=== PATIENT | male | born 1970 | race Caucasian/White ===

== ENCOUNTER → 2016-09-01 | Outpatient (REF) | payer OTHER | LOC: M LAB REF 16:35 | PROVIDERS: ATTEND Internal Medicine | DX: M25.50 Pain in unspecified joint (principal) ==

== ENCOUNTER → 2018-09-20 | Outpatient (CLI) | payer OTHER ==
--- NOTE | 2018-09-20 18:43 | REP ---
Bilateral hand radiographs: Eight views. History: Pain and swelling. The patient reports a bump on the left hand. Findings: Four views of the right hand demonstrate overall normal mineralization. There are scattered osteoarthritic changes mild in degree involving the first carpometacarpal articulation, the PIP joint of the long finger and ring finger. No erosive changes seen. Study is otherwise unremarkable. Four views of the left hand show overall normal mineralization. There is also mild osteoarthritic spurring at the first carpometacarpal articulation on the left. Early spurring is seen at the PIP joints of the index, long, and ring finger on the left side. No erosive changes seen. Soft tissues are unremarkable. Impression: Mild osteoarthritic changes. No erosive changes seen. Electronically Signed by Rashad Bedolla MD 09/20/2018 08:29 P
== END ==
LOC: M WUC 15:48
PROVIDERS: ATTEND Internal Medicine
DX: M19.042 Primary osteoarthritis, left hand (principal); M19.041 Primary osteoarthritis, right hand

== ENCOUNTER → 2018-09-20 | Outpatient (REF) | payer OTHER ==
[2018-09-22 00:10] LABS: Lyme Disease IgG/IgM Antibodie <0.91 ISR (0.00-0.90); Lyme Disease IgM Ab Quantitati <0.80 index (0.00-0.79)
== END ==
LOC: M LAB REF 12:02
PROVIDERS: ATTEND Internal Medicine
DX: M79.643 Pain in unspecified hand (principal)

== ENCOUNTER → 2018-10-25 | Outpatient (REF) | payer OTHER | LOC: M LAB REF 11:19 | PROVIDERS: ATTEND Internal Medicine | DX: M79.641 Pain in right hand (principal) ==

== ENCOUNTER → 2018-12-31 | Outpatient (REF) | payer OTHER ==
[2018-12-31 18:25] LABS: BASO % 0.4 % (0.0-1.0); EOS # 0.2 10^3/uL (0.0-0.50); EOS % 2.4 % (0.0-3.0); HEMATOCRIT 42.8 % (42.0-52.0); HEMOGLOBIN 14.5 g/dl (13.5-17.5); LYMPH # 1.6 10^3/uL (1.5-4.5); LYMPH % 23.8 % (24.0-44.0); MEAN CORPUSCULAR HEMOGLOBIN 30.8 pg (27.0-33.0); MEAN CORPUSCULAR HGB CONC 33.9 g/dl (32.0-36.5); MEAN CORPUSCULAR VOLUME 90.9 fl (80.0-96.0); MONO # 0.7 10^3/uL (0.0-0.8); MONO % 10.6 % (0.0-5.0); NEUTROPHILS # 4.3 10^3/uL (1.8-7.7); NEUTROPHILS % 62.7 % (36.0-66.0); PLATELET COUNT, AUTOMATED 273 10^3/uL (150-450); RED BLOOD COUNT 4.71 10^6/uL (4.30-6.10); WHITE BLOOD COUNT 6.8 10^3/uL (4.0-10.0)
[2018-12-31 18:34] LABS: C REACTIVE PROTEIN QUANTITATIV < 0.30 MG/DL (0.00-0.30); RHEUMATOID FACTOR QUANT < 10.0 IU/ML (<15.0)
[2018-12-31 19:56] LABS: ERYTHROCYTE SEDIMENTATION RATE 13 mm/hr (0-15)
[2019-01-03 00:08] LABS: ANTINUCLEAR ANTIBODIES DIRECT Negative (Negative); Lyme Disease IgG/IgM Antibodie <0.91 ISR (0.00-0.90); Lyme Disease IgM Ab Quantitati <0.80 index (0.00-0.79)
== END ==
LOC: M LABDRAW1 17:37
PROVIDERS: ATTEND Orthopaedic Surgery
DX: M65.321 Trigger finger, right index finger (principal)

== ENCOUNTER → 2019-04-19 | Outpatient (CLI) | payer OTHER ==
--- NOTE | 2019-04-22 21:01 | SLEEPCENT ---
DATE OF PROCEDURE: 04/19/2019 Ordered by: BRIDGET Wang Nocturnal polysomnography was performed for evaluation of sleep physiology in this patient with a history of excessive somnolence and nonrestorative sleep who has comorbidities of type 2 diabetes mellitus. 7 hours and 21 minutes of data were reviewed. There were 383 minutes of sleep identified. Sleep latency was short at 4.5 minutes. REM latency was short at 65 minutes. Sleep architecture was fair with four REM cycles but fragmentation was seen. Overall sleep efficiency was 88.6%. The patient's electrocardiogram shows a sinus rhythm with an average heart rate of 74 beats per minute. EEG showed normal waveforms for awake and sleep. There were 59 respiratory events identified of 10 seconds in duration or greater for an apnea-hypopnea index of 9.2. Respiratory related arousals occurred 4.7 times per hour. There was minimal activity in the limb leads. Significant snoring was noted and oxygen saturations remained in the 90s for much of the study. IMPRESSION Obstructive sleep apnea syndrome (G47.33). Apnea-hypopnea index 9.2. RECOMMENDATIONS The patient should be encouraged to return to the sleep disorder center for pressure therapy. In the interim, alcohol and sedative avoidance should be practiced and caution exercised during the operation of motor vehicles.
== END ==
LOC: M SLEEP 20:00
PROVIDERS: ATTEND Nurse Practitioner Family
DX: R06.83 Snoring (principal)

== ENCOUNTER → 2019-05-23 | Outpatient (CLI) | payer OTHER | LOC: M SLEEP 19:49 | PROVIDERS: ATTEND Nurse Practitioner Family | DX: G47.33 Obstructive sleep apnea (adult) (pediatric) (principal) ==

== ENCOUNTER → 2019-06-05 | Outpatient (CLI) | payer OTHER ==
[2019-06-05 14:56] LABS: BLOOD UREA NITROGEN 15 MG/DL (7-18); CALCIUM LEVEL 8.8 MG/DL (8.5-10.1); CARBON DIOXIDE LEVEL 26 MEQ/L (21-32); CHLORIDE LEVEL 104 MEQ/L (98-107); CREATININE FOR GFR 1.01 MG/DL (0.70-1.30); GLOMERULAR FILTRATION RATE > 60.0 (>56); GLUCOSE, FASTING 190 MG/DL (70-100); POTASSIUM SERUM 4.3 MEQ/L (3.5-5.1); SODIUM LEVEL 139 MEQ/L (136-145)
--- NOTE | 2019-06-05 16:32 | ECGEPIP ---
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
== END ==
LOC: M LAB 13:26
PROVIDERS: ATTEND Orthopaedic Surgery
DX: Z01.818 Encounter for other preprocedural examination (principal)

== ENCOUNTER 2019-07-07 06:46 | Day surgery (SDC) | payer OTHER ==
[~2019-07-07] VITALS: Ht 170.2 cm; Wt 86.2 kg
[~2019-07-07 06:46] MED LIST: ATOR40TA75 PO; BIMA01SOL OD; DAILTAB56 PO; METF500T13 PO; NS 1,000 ML IV ONE; TIMOXEOPD OD
[2019-07-07] MEDS ORDERED: LIDOCAINE 2% INJ 100 MG/5 ML SDV (FOR ANES.) As Ordered ONE (07:00)
[2019-07-07] MEDS ORDERED: propofoL 200 MG/20 ML VIAL As Ordered ONE (07:00)
--- NOTE | 2019-07-07 08:29 | ROOR ---
Patient Name: Renny Webster Procedure Date: 07/07/2019 8:00 AM Date of : 1970 Age: 49 Room: [facility] Gender: Male Note Status: Finalized Procedure: Total Colonoscopy to Cecum + ileoscopy Indications: Screening for colorectal malignant neoplasm Providers: Timothy Patricio MD Referring MD: HEYDI BARNETT JR, MD Requesting Provider: Medicines: Monitored Anesthesia Care Complications: No immediate complications. Procedure: Pre-Anesthesia Assessment: - The heart rate, respiratory rate, oxygen saturations, blood pressure, adequacy of pulmonary ventilation, and response to care were monitored throughout the procedure. The Colonoscope was introduced through the anus and advanced to the cecum, identified by appendiceal orifice and ileocecal valve. The colonoscopy was performed without difficulty. The patient tolerated the procedure well. The quality of the bowel preparation was good. Findings: The perianal and digital rectal examinations were normal. Non-bleeding internal hemorrhoids were found during retroflexion. The hemorrhoids were small and Grade I (internal hemorrhoids that do not prolapse). The exam was otherwise without abnormality on direct and retroflexion views. The terminal ileum appeared normal. The exam was otherwise without abnormality. Impression: - Non-bleeding internal hemorrhoids. - The examination was otherwise normal on direct and retroflexion views. - The examined portion of the ileum was normal. - The examination was otherwise normal. - No specimens collected. - The exam was otherwise normal to the cecum. Recommendation: - Patient has a contact number available for emergencies. The signs and symptoms of potential delayed complications were discussed with the patient. Return to normal activities tomorrow. Written discharge instructions were provided to the patient. - High fiber diet. - Discharge patient to home. - Continue present medications. - Repeat colonoscopy in 10 years for screening purposes. - Return to referring physician. - The findings and recommendations were discussed with the patient's family. Timothy Patricio MD Timothy Patricio MD 07/07/2019 8:28:36 AM Electronically signed by Timothy Patricio MD Number of Addenda: 0 Note Initiated On: 07/07/2019 8:00 AM Estimated Blood Loss: Estimated blood loss: none.
[2019-07-07 08:50] VITALS: BP 136/87
== END 2019-07-07 09:05 | disposition home or self-care (01) ==
LOC: M OPP 06:46
PROVIDERS: ATTEND Internal Medicine Gastroenterology
DX: Z12.11 Encounter for screening for malignant neoplasm of colon (principal); K64.0 First degree hemorrhoids; E11.9 Type 2 diabetes mellitus without complications; Z79.84 Long term (current) use of oral hypoglycemic drugs; Z79.899 Other long term (current) drug therapy; Z88.5 Allergy status to narcotic agent

== ENCOUNTER → 2020-06-11 | Outpatient (CLI) | payer OTHER ==
[~2020-06-11] MED LIST changes: -BIMA01SOL OD; +BIMA01SOL OU; +JANU100T PO; -NS 1,000 ML IV ONE; -TIMOXEOPD OD; +TIMOXEOPD OU
== END ==
LOC: M LABSMTC 10:23
PROVIDERS: ATTEND Anesthesiology
DX: Z01.812 Encounter for preprocedural laboratory examination (principal); Z20.822 Contact with and (suspected) exposure to COVID-19

== ENCOUNTER 2020-06-16 06:18 | Day surgery (SDC) | payer OTHER ==
[~2020-06-16] VITALS: Ht 167.6 cm; Wt 86.4 kg
[~2020-06-16 06:18] MED LIST changes: +LIDOCAINE 1% MDV 20ML VIAL SQ PRN; +LR 1,000 ML IV ONE; +ceFAZolin SOD 2 GM in IV 1 EA IV ONE
--- OUTSIDE RECORDS SUMMARY | 2020-06-16 06:23 | CCD | Continuity of Care Document ---
Author Author Renny MAC MD Organization Unknown Address [address] [place] [address] Phone [phone] Care Team Providers Care Rig Manager Name Role Phone Darrian Mahoney MD AUTM [phone] Problems Active Problems Provider Date Type 2 diabetes mellitus Darrian Mahoney MD Onset: 012 Sciatica Darrian Mahoney MD Onset: 02/26/2012 Elevated levels of transaminase & lactic acid dehydrog enase Darrian Mahoney MD Onset: 07/20/2011 Pure hypercholesterolemia Darrian Mahoney MD Onset: 2011 Right bundle branch block Darrian Mahoney MD Onset: 2011 Social History Type Date Description Comments Sex Unknown ETOH Use Rarely consumes alcohol ETOH Use Occasionally consumes alcohol Tobacco Use Start: Unknown Patient is a current smoker, smo kes every day Tobacco Use Start: Unknown End: Unknown Patient is a former smoker Smoking Status Reviewed: 05/24/20 Patient is a former smoker Allergies, Adverse Reactions, Alerts Active Allergies Reaction Severity Comments Date Tylenol With Codeine 019 Inactive Allergies NKDA 04/04/2017 Medications Active Medications SIG Qnty Indications Ordering Provide r Date Hydrocodone-Acetaminophen 5-325mg Tablets 1 tab by mouth every 4 hours as needed for post operative pain/please do not fill until 06/17/2019 20tabs Jonathan Mac MD 0 Timolol Maleate 0.25% Solution Darrian Mahoney MD 03/03/2016 Lumigan 0.01% Solution instill one drop into each eye at bedtime Darrian Mahoney MD Atorvastatin Calcium 40mg Tablets Take One Tablet By Mouth Every Day (Replaces Simvastatin) 90tabs Darrian Mahoney MD 01/07/2014 Metformin HCL ER 750mg Tablets ER 24HR Take Two Tablets By Mouth Before Supper 180tabs Darrian Mahoney MD 07/21/2011 Mens Multi Vitamin & Mineral Formula Tablets Unknown Naproxen 500mg Tablets 1 by mouth twice a day Unknown Immunizations Description No Information Available Vital Signs Date Vital Result Comment 04/25/2019 8:34am Body Temperature 97.6 F Height 66.5 inches 5'6.50" Weight 198.00 lb BMI (Body Mass Index) 31.5 kg/m2 04/04/2017 2:05pm Body Temperature 97.0 F Height 65.25 inches 5'5.25" Weight 194.00 lb BMI (Body Mass Index) 32.0 kg/m2 Results Description No Information Available Procedures Date Code Description Status 04/30/2020 67583 MRI Lower Extremity Any Joint Co mpleted Medical Devices Description No Information Available Encounters Type Date Location Provider Dx Diagnosis Office Visit 05/24/2020 2:00p [place] Jonathan Mac MD M23.203 Derang of unsp medial meniscus due to old tear/inj, r knee Assessments Date Code Description Provider 05/24/2020 M23.203 Derangement of unspe cified medial meniscus due to old tear or injury, right knee Jonathan Mac MD 05/24/2020 M23.203 Derangement of unspe cified medial meniscus due to old tear or injury, right knee Jonathan Mac MD 04/30/2020 M25.561 Pain in right knee Jonathan guillen MD 04/30/2020 M25.561 Pain in right knee MRI 04/30/2020 M25.461 Effusion, right knee Jonathan lopez MD 04/30/2020 M25.461 Effusion, right knee MRI 03/18/2020 M25.561 Pain in right knee Jonathan guillen MD 03/18/2020 M25.461 Effusion, right knee Jonathan lopez MD Plan of Treatment Future Appointment(s):* 07/06/2020 3:15 pm - Jonathan Mac MD at [place] 05/24/2020 - Jonathan Mac MD* M23.203 Derangement of unspecified medial meniscus due to old tear or injury, right knee * All * Follow up:* f/u in 6-8 weeks right knee recheck Functional Status Description No Information Available Mental Status Description No Information Available Referrals Refer to Reason for Referral Status Appt Date Jonathan Mac MD DME PER SCOT AT [facility] NO AUT H REQUIRED FOR SHORT RUNNER KNEE BRACE(L1833) AND THEY HAVE A $250 DEDUCTIBLE ONCE MET COVERED AT 100% TO [place] NT CALL REF #[id number] Created [facility] [address] [address] [phone] Jonathan Mac MD MRI NO AUTH REQUIRED PER LEONEL Walsh FOR MRI OF RIGHT KNEE ([id number]) TO XRAY. DG Created [facility] [address] [address] [phone]
--- OUTSIDE RECORDS SUMMARY | 2020-06-16 06:23 | CCD | Continuity of Care Document ---
Author Author Renny MAC MD Organization Unknown Address [address] [place] [address] Phone [phone] Care Team Providers Care Assistant Grocery Name Role Phone Darrian Mahoney MD AUTM [phone] Problems Active Problems Provider Date Type 2 [...] Available Procedures Date Code Description Status 04/30/2020 04271 MRI Lower Extremity Any Joint Co mpleted Medical Devices Description No Information Available Encounters Type Date Location Provider Dx Diagnosis Office Visit 05/24/2020 2:00p [place] Jonathan Mac MD M23.203 Derang of unsp [...] 3:15 pm - Jonathan Mac MD at [place] 05/24/2020 - Jonathan Mac MD* M23.203 Derangement of unspecified medial meniscus due to old tear or injury, right knee * All * Follow up:* f/u in 6-8 weeks right knee recheck Functional Status Description No Information Available Mental Status Description No Information Available Referrals Refer to Reason for Referral Status Appt Date Jonathan Mac MD DME PER SCOT AT [facility] NO AUT H REQUIRED FOR SHORT RUNNER KNEE BRACE(L1833) AND THEY HAVE A $250 DEDUCTIBLE ONCE MET COVERED AT 100% TO [place] NT CALL REF #[id number] Created [facility] [address] [address] [phone] Jonathan Mac MD MRI NO AUTH REQUIRED PER LEONEL Walsh FOR MRI OF RIGHT KNEE ([id number]) TO XRAY. DG Created [facility] [address] [address] [phone]
--- OUTSIDE RECORDS SUMMARY | 2020-06-16 06:23 | CCD | Continuity of Care Document ---
Author Author Renny GILES Organization Unknown Address [address] [place] [address], [address] [address] Phone [phone] Care Team Providers Care Emergency Service Worker Name Role Phone Darrian Mahoney MD AUTM [phone] Problems Active Problems Provider Date Type 2 [...] End: Unknown Patient is a former smoker Allergies, Adverse Reactions, Alerts Active Allergies Reaction Severity Comments Date Tylenol With Codeine 019 Inactive Allergies NKDA 04/04/2017 Medications Active Medications SIG Qnty Indications Ordering Provide r Date Hydrocodone-Acetaminophen 5-325mg Tablets 1 tab by mouth every 4 hours as needed for post operative pain/please do not fill until 06/17/2019 20tabs Jonathan Davidson MD 0 Timolol Maleate 0.25% Solution Darrian [...] kg/m2 Results Description No Information Available Procedures Description No Information Available Medical Devices Description No Information Available Encounters Description No Information Available Assessments Date Code Description Provider 03/18/2020 M25.561 Pain in right knee Jonathan guillen MD 03/18/2020 M25.461 Effusion, right knee Jonathan lopez MD Plan of Treatment Future Appointment(s):* 05/24/2020 2:00 pm - Jonathan Davidson MD at [place] 03/18/2020 - Jonathan Davidson MD* M25.561 Pain in right knee* Follow up:* with [facility] for rt knee mri results * M25.461 Effusion, right knee Functional Status Description No Information Available Mental Status Description No Information Available Referrals Refer to Reason for Referral Status Appt Date Jonathan Davidson MD MRI NO AUTH REQUIRED PER LEONEL Walsh FOR MRI OF RIGHT KNEE ([id number]) TO XRAY. DG Created [facility], [address] [place] [address] [phone]
--- OUTSIDE RECORDS SUMMARY | 2020-06-16 06:23 | CCD ---
Continuity of Care Document (CCD) Created on: 06/09/2020 Renny Webster External Reference #: [id number] : 1970 Sex: Male Author Author Renny Mahoney MD Organization Unknown Address [address] [facility] [address] [place] [address] Phone [phone] Care Team Providers Care Financial Reporting Analyst Name Role Phone Darrian Mahoney JR, MD AUTM Unavailable Problems Active Problems Provider Date Elevated levels of transaminase & lactic acid dehydrog enase Darrian Mahoney MD Onset: 07/20/2011 Pure hypercholesterolemia Darrian Mahoney MD Onset: 07/19 Right bundle branch block Darrian Mahoney MD Onset: 07/19 Type 2 diabetes mellitus Darrian Mahoney MD Onset: 2011 Sciatica Darrian Mahoney MD Onset: 02/26/2012 Social History Type Date Description Comments Sex Unknown Smokeless Tobacco Current Smokeless Tobacco User , Uses 4 Times Daily he does continue to chew some tobacco daily. A can typically lasts him about once a week. ETOH Use Consumes 1 beer per day Tobacco Use Start: Unknown pt chews tobacco 1 can every few days Allergies, Adverse Reactions, Alerts Description No Known Drug Allergies Medications Active Medications SIG Qnty Indications Ordering Provide r Date Cyclobenzaprine HCL 10mg Tablets take one tablet by mouth three times a day as needed 21tabs Aretha cindy Mahoney MD 06/08/2020 Januvia 100mg Tablets 1 by mouth every day 90tabs Darrian Mahoney MD 04/13/2020 Timolol Maleate 0.25% Solution Darrian Mahoney MD 03/03/2016 Lumigan 0.01% Solution instill one drop into each eye at bedtime Darrian Mahoney MD 1 Atorvastatin Calcium 40mg Tablets Take One Tablet By Mouth Every Day (Replaces Simvastatin) 90tabs Darrian Mahoney MD 01/07/2014 Mens Multivitamin Tablets 1 PO qd Darrian Mahoney MD 12/27/2012 Stas Contour Blood Glucose Test Strips Strips test bid as directed 200units Jimbo Conley 09/01/2011 Metformin HCL ER 750mg Tablets ER 24HR Take Two Tablets By Mouth Every Day Before Supper 180tabs Darrina Mahoney MD 07/21/2011 Immunizations Description No Information Available Vital Signs Date Vital Result Comment 06/08/2020 1:29pm BP Systolic 110 mmHg BP Diastolic 72 mmHg Heart Rate 76 /min Height 65.50 inches 5'5.50" Weight 188.00 lb BMI (Body Mass Index) 30.8 kg/m2 04/07/2020 8:12am BP Systolic 110 mmHg BP Diastolic 78 mmHg Heart Rate 80 /min Height 65.50 inches 5'5.50" Weight 187.00 lb BMI (Body Mass Index) 30.6 kg/m2 Results Test Acquired Date Facility Test Result H/L Range Note Complete Blood Count 04/07/2020 [facility] Foreign Diplomat: Dr Darrian Mahoney [place], [place] [id number] [phone] WBC 6.8 x10*3/UL 4.1 - 10.9 RBC 4.96 x10*6/UL 4.20 - 6.30 Hemoglobin 14.9 g/dL 12.0 - 18.0 Hematocrit 43.0 % 37.0 - 51.0 MCV 86.6 fL 80.0 - 97.0 MCH 30.0 pg 26.0 - 32.0 MCHC 34.7 g/dL 31.0 - 38.0 RDW 12.2 % 11.6 - 13.7 PLT 221 x10*3/UL 140 - 440 MPV 8.5 FL 7.8 - 11.0 Lymph % 17.8 % 10.0 - 58.5 Mid % 5.0 % 1.7 - 9.3 Neut % 77.2 % 37.0 - 92.0 Lymph # 1.2 x10*3/UL 0.6 - 4.1 Mid # 0.4 x10*3/UL 0.1 - 0.6 Neut # 5.2 x10*3/UL 2.0 - 7.8 A1c 04/07/2020 [facility] , Foreign Diplomat: [place] [address] [phone] Hba1c 7.5 % High <5.7 1 Est Avg Glucose 169 mg/dL High 60 - 110 Comprehensive Chem Profile 04/07/2020 [facility], Foreign Diplomat: [place] [address] [phone] Glucose 134 mg/dL High 74 - 99 2 BUN 22 mg/dL High 7 - 18 Creatinine 0.8 mg/dL 0.6 - 1.3 Sodium 138 mEq/L 136 - 145 Potassium 4.6 mEq/L 3.5 - 5.1 Chloride 102 mEq/L 98 - 107 Carbon Dioxide 26 mEq/L 21 - 32 Calcium 9.0 mg/dL 8.5 - 10.1 Alk. Phosphatase 75 mg/dL 46 - 116 Total Bilirubin 0.6 mg/dL 0.2 - 1.0 Ast (Sgot) 30 U/L 15 - 37 Alt (SGPT) 65 U/L 12 - 78 Albumin 3.9 g/dL 3.4 - 5.0 Total Protein 7.2 g/dL 6.4 - 8.2 A/G Ratio 1.18 CALC 1.00 - 1.90 GFR >= 60 mL/min >60 GFR >= 60 mL/min >60 3 Lipid Profile 04/07/[address] [facility] Foreign Diplomat: [place] [address] [phone] Cholesterol 149 mg/dL 131 - 200 Triglycerides 73 mg/dL 30 - 150 HDL Cholesterol 46 mg/dL 35 - 60 LDL (Calculated) 88 CALC 50 - 159 Microalbumin/Creatinine Urine 04/07/[address] [address] [facility] [facility], Foreign Diplomat: [place] [address] [phone] Microalbumin Urine 6.9 mg/L 1.3 - 20.0 Urine Creatinine 120.7 mg/dL 30.0 - 125.0 Microalb/Creat Ratio 5.7 ug/mg 0.0 - 30.0 1 Lab Result Notes: Pre-Diabetes 5.7 - 6.4 % Diabetes = or > 6.5% 2 100-125 mg/dL PRE-DIABET ES/FASTING >126 mg/dL DIABETES/FASTING 3 CHRONIC KIDNEY DISEASE STAGI NG PER NKF STAGE I & II GFR >= 60 NORMAL TO MILDLY DECREASED STAGE III GFR 30-59 MODERATELY DECREASED STAGE IV GFR 15-29 SEVERELY DECREASED STAGE V GFR <15 VERY LITTLE GFR LEFT ESRD GFR <15 ON BOTTLE AND GLASS INSPECTOR Procedures Date Code Description Status 04/07/2020 73836 EKG/Interpretation & Report Comp leted 04/02/2020 [id number] Diabetic Retinal Eye Exam Comple paris 07/07/2019 [id number] Colonoscopy Completed 04/16/2019 [id number] Diabetic Retinal Eye Exam Comple [facility] 09/24/2017 [id number] Diabetic Retinal Eye Exam Comple [facility]is 02/22/2017 [id number] Diabetic Retinal Eye Exam Comple [facility] 08/28/2016 [id number] Diabetic Retinal Eye Exam Comple [facility] 10/01/2015 [id number] Diabetic Retinal Eye Exam Comple [facility] 03/01/2015 167559928 Diabetic Retinal Eye Exam [facility] 05/20/2014 [id number] Diabetic Retinal Eye Exam [facility] 09/27/2013 [id number] Diabetic Retinal Eye Exam [facility]ple [facility] Medical Devices Description No Information Available Encounters Type Date Location Provider Dx Diagnosis Office Visit 06/08/2020 1:30p [facility] Z01.810 Encounter for preprocedural cardiovascul ar examination M25.511 Pain in right shoulder E11.3291 Type 2 diab with mild nonp r tnop without mclr edema, r eye E11.36 Type 2 diabetes mellitus wit h diabetic cataract G47.33 Obstructive sleep apnea (laila lt) (pediatric) E78.00 Pure hypercholesterolemia, u nspecified Office Visit 04/07/2020 8:40a [facility] MD E11.3291 Type 2 diab with mild nonp rtnop without mclr edema, r eye E11.36 Type 2 diabetes mellitus wit h diabetic cataract E78.00 Pure hypercholesterolemia, u nspecified K75.81 Nonalcoholic steatohepatitis ([place]agan) F17.220 Nicotine dependence, chewing tobacco, uncomplicated Z71.6 Tobacco abuse counseling E66.09 Other obesity due to excess calories Z68.30 Body mass index [BMI]30.0-30 .9, adult Assessments Date Code Description Provider 06/08/2020 Z01.810 Encounter for preprocedural card iovascular examination Darrian Mahoney MD 06/08/2020 M25.511 Pain in right shoulder Darrian Mahoney MD 06/08/2020 E11.3291 Type 2 diabetes [place] itus with mild nonproliferative diabetic Darrian Mahoney MD 06/08/2020 E11.36 Type 2 diabetes mellitus with di abetic cataract Darrian Mahoney MD 06/08/2020 G47.33 Obstructive sleep apnea (adult) (pediatric) Darrian Mahoney MD 06/08/2020 E78.00 Pure hypercholesterolemia, unspe cified Darrian Mahoney MD 04/07/2020 E11.3291 Type 2 diabetes shel[place] itus with mild nonproliferative diabetic Darrian Mahoney MD 04/07/2020 E11.36 Type 2 diabetes mellitus with di abetic cataract Darrian Mahoney MD 04/07/2020 E78.00 Pure hypercholesterolemia, unspe cified Darrian Mahoney MD 04/07/2020 K75.81 Nonalcoholic steatohepatitis (Na sh) Darrian Mahoney MD 04/07/2020 F17.220 Nicotine dependence, chewing tob acco, uncomplicated Darrian Mahoney MD 04/07/2020 Z71.6 Tobacco abuse counseling Darrian Mahoney MD 04/07/2020 E66.09 Other obesity due to excess belen keysha Darrian Mahoney MD 04/07/2020 Z68.30 Body mass index [BMI]30.0-30.9, adult Darrian Mahoney MD Plan of Treatment Future Appointment(s):* 10/29/2020 8:00 am - Darrian Mahoney MD at [facility] 10/03/2019 - Darrian Mahoney MD* E11.3291 Type 2 diabetes mellitus with mild nonproliferative diabetic * E78.00 Pure hypercholesterolemia, unspecified * K75.81 Nonalcoholic steatohepatitis ([place]agan) * E66.09 Other obesity due to excess calories * Z68.30 Body mass index (BMI) 30.0-30.9, adult Functional Status Description No Information Available Mental Status Description No Information Available Referrals Description No Information Available
--- OUTSIDE RECORDS SUMMARY | 2020-06-16 06:23 | CCD | Continuity of Care Document ---
Author Author Renny SY MD Organization Unknown Address [address] [place] [address], [address] [place] [address] Phone [phone] Care Team Providers Care Referral And Information Aide Name Role Phone Darrian Mahoney Jr, M.D. @ [facility] AUTM AUTM Unavailable Darrian Mahoney MD @ [facility] AUTM Problems Description No Information Available Social History Type Date Description Comments Sex Unknown Tobacco Use Start: Unknown Never Smoked Cigarettes Tobacco Use Reviewed: 11/11/19 Patient has never smoked Smoking Status Reviewed: 11/11/19 Patient has never smoked Allergies, Adverse Reactions, Alerts Active Allergies Reaction Severity Comments Date Codeine 04/17/2019 Medications Active Medications SIG Qnty Indications Ordering Provide r Date CPAP Device 7cm lcw Afshan Morales, N.P. 06/04/2019 Metformin HCL ER 750mg Tablets ER 24HR 1 by mouth twice a day Unknown Atorvastatin Calcium 40mg Tablets 1 tab by mouth every day Unknown Lumigan 0.01% Solution one drop to each eye at bedtime Unknown Timolol Maleate 0.5% (Daily) Solut ion one drop each eye twice a day Unknown Multivitamin Adult Tablets 1 by mouth every day Unknown Januvia 25mg Tablets 1 by mouth every day Unknown Immunizations CPT Code Status Date Vaccine Lot # [id number] Given 03/19/2019 Afluria, Quadrivalent, 0.5ml , [facility]# [id number] Vital Signs Date Vital Result Comment 04/29/2020 1:35pm Body Temperature 96.5 F 03/16/2020 1:02pm Body Temperature 97.3 F Results Description No Information Available Procedures Date Code Description Status 03/16/2020 Inject/Drain Arthrocentesis Ilana r Joint/Bursa/Ganglion Cyst Completed Medical Devices Description No Information Available Encounters Type Date Location Provider Dx Diagnosis Office Visit 04/29/2020 1:30p [facility] Mark Sy MD S46.011D Strain of musc/tend the rotator cuff of right shoulder, subs M75.81 Other shoulder lesions, righ t shoulder Office Visit 03/16/2020 1:00p [facility] Mark Sy MD S46.011A Strain of musc/tend the rotator cuff of right shoulder, init M75.81 Other shoulder lesions, righ t shoulder M25.511 Pain in right shoulder Office Visit 11/11/2019 3:45p [facility]Thoracic Gustavo Morales, N.P. G47.33 Obstructive sleep apnea (adult) (pediatr ic) Assessments Date Code Description Provider 04/29/2020 S46.011D Strain of muscle(s) and tendon(s) of the rotator cuff of right shoulder, subsequent encounter Mark Sy MD 04/29/2020 M75.81 Other shoulder lesions, right sh sharon Sy MD 03/16/2020 S46.011A Strain of muscle(s) and tendon(s) of the rotator cuff of right shoulder, initial encounter Mark Sy MD 03/16/2020 M75.81 Other shoulder lesions, right sh sharon Sy MD 03/16/2020 M25.511 Pain in right shoulder Mark colin MD 11/11/2019 G47.33 Obstructive sleep apnea (adult) (pediatric) Afshan Morales, N.P. Plan of Treatment Future Appointment(s):* 11/08/2020 3:45 pm - Afshan Morales, N.P. at [facility] Pul[facility]/Thoracic 04/29/2020 - Mark Sy MD* S46.011D Strain of muscle(s) and tendon(s) of the rotator cuff of right shoulder, subsequent encounter* New Orders:* Surgery, Ordered: 04/29/20 * Follow up:* post op * M75.81 Other shoulder lesions, right shoulder Functional Status Functional Condition Comment Date Status Independent with all ADL's Activ e Independent with all IADL's Acti ve Mental Status Mental Condition Comment Date Status None Active Can understand information Activ e Referrals Description No Information Available
--- OUTSIDE RECORDS SUMMARY | 2020-06-16 06:23 | CCD | Continuity of Care Document ---
Author Author Renny MAC MD Organization Unknown Address [address] [place] [address] Phone [phone] Care Team Providers Care Chocolate Maker Name Role Phone Darrian Mahoney MD AUT[facility] [phone] Problems Active Problems Provider Date Type 2 [...] Available Procedures Date Code Description Status 04/30/2020 44591 MRI Lower Extremity Any Joint Co mpleted Medical Devices Description No Information Available Encounters Type Date Location Provider Dx Diagnosis Office Visit 05/24/2020 2:00p [place] Jonathan Mac MD M23.203 Derang of unsp medial meniscus due to old tear/inj, r knee M25.561 Pain in right knee Assessments Date Code Description Provider 05/24/2020 M23.203 Derangement of unspe cified medial meniscus due to old tear or injury, right knee Jonathan Mac MD 05/24/2020 M25.561 Pain in right knee Jonathan guillen MD 04/30/2020 M25.561 Pain in right knee Jonathan guillen MD 04/30/2020 M25.561 Pain in right knee MRI 04/30/2020 M25.461 Effusion, right knee Jonathan lopez MD 04/30/2020 M25.461 Effusion, right knee MRI 03/18/2020 M25.561 Pain in right knee Jonathan guillen MD 03/18/2020 M25.461 Effusion, right knee Jonathan lopez MD Plan of Treatment 05/24/2020 - Jonathan Mac MD* M23.203 Derangement of unspecified medial meniscus due to old tear or injury, right knee * M25.561 Pain in right knee * All * Follow up:* f/u in 6-8 weeks right knee recheck Functional Status Description No Information Available Mental Status Description No Information Available Referrals Refer to Dr Reason for Referral Status Appt Date Jonathan Mac MD DME PER SCOT AT [facility] NO AUT H REQUIRED FOR SHORT RUNNER KNEE BRACE(L1833) AND THEY HAVE A $250 DEDUCTIBLE ONCE MET COVERED AT 100% TO KASIA NT CALL REF #[id number] Created [address] [place] [address] [phone] Jonathan Mac MD MRI NO AUTH REQUIRED PER LEONEL Walsh FOR MRI OF RIGHT KNEE ([id number]) TO XRAY. DG Created [address] [place] [phone]
--- OUTSIDE RECORDS SUMMARY | 2020-06-16 06:23 | CCD | Continuity of Care Document ---
Author Author Renny Mahoney MD Organization Unknown Address [address] [facility] [address] [place] [address] Phone [phone] Care Team Providers Care Environmental Geologist Name Role Phone Darrian Mahoney JR, MD AUTM Unavailable Problems Active Problems Provider Date Elevated levels of transaminase & lactic acid dehydrog enase Darrian Mahoney MD Onset: 07/20/2011 Pure hypercholesterolemia Darrian Mahoney MD Onset: 07/19 Right bundle branch block Darrian Mahonye MD Onset: 07/19 Type 2 diabetes mellitus [...] SIG Qnty Indications Ordering Provide r Date Januvia 100mg Tablets 1 by mouth every day 90tabs Darrian Mahoney MD 04/13/2020 Naproxen 500mg Tablets Take One Tablet By Mouth Twice A Day With Food 60tabs Jimbo Conley 10/22/2018 Timolol Maleate 0.25% Solution Darrian Mahoney MD [...] By Mouth Every Day Before Supper 180tabs Darrian Mahoney MD 07/21/2011 Immunizations Description No Information Available Vital Signs Date Vital Result Comment 04/07/2020 8:12am BP Systolic 110 mmHg BP Diastolic 78 mmHg Heart Rate 80 /min Height 65.50 inches 5'5.50" Weight 187.00 lb BMI (Body Mass Index) 30.6 kg/m2 10/03/2019 11:36am BP Systolic 90 mmHg BP Diastolic 62 mmHg Heart Rate 68 /min Height 65.50 inches 5'5.50" Weight 183.00 lb BMI (Body Mass Index) 30.0 kg/m2 Results Test Acquired Date Facility Test Result H/L Range Note Complete Blood Count 04/07/2020 [facility] Cold Storage Supervisor: Dr Darrian Mahoney [place], [place] [id number] [phone] WBC 6.8 x10*3/UL 4.1 - 10.9 RBC [...] 5.2 x10*3/UL 2.0 - 7.8 A1c 04/07/2020 [facility] Cold Storage Supervisor: Dr Darrian Mahoney [place], [place] [id number] [phone] Hba1c 7.5 % High <5.7 1 Est Avg Glucose 169 mg/dL High 60 - 110 Comprehensive Chem Profile 04/07/2020 [facility] Cold Storage Supervisor: Dr Darrian Mahoney [place], [place] [address] [phone] Glucose 134 mg/dL High 74 - 99 [...] 60 mL/min >60 3 Lipid Profile 04/07/2020 [facility] Storage Supervisor: Dr Darrian Mahoney [place], [place] [id number] [phone] Cholesterol 149 mg/dL 131 - 200 Triglycerides 73 mg/dL 30 - 150 HDL Cholesterol 46 mg/dL 35 - 60 LDL (Calculated) 88 CALC 50 - 159 Microalbumin/Creatinine Urine 04/07/2020 [facility] Storage Supervisor: [place] [address] [phone] Microalbumin Urine 6.9 mg/L 1.3 - 20.0 [...] LITTLE GFR LEFT ESRD GFR <15 ON DRIP MOLDER Procedures Date Code Description Status 04/07/2020 90192 EKG/Interpretation & Report Comp leted 04/02/2020 [id number] Diabetic Retinal Eye Exam [facility] 07/07/2019 18067066 Colonoscopy Completed 04/16/2019 976851992 Diabetic Retinal Eye Exam [facility] 09/24/2017 764353036 Diabetic Retinal Eye Exam [facility] 02/22/2017 667124042 Diabetic Retinal Eye Exam [facility] 08/28/2016 386031166 Diabetic Retinal Eye Exam [facility] 10/01/2015 113807037 Diabetic Retinal Eye Exam [facility] 03/01/2015 238234283 Diabetic Retinal Eye Exam [facility] 05/20/2014 162385538 Diabetic Retinal Eye Exam [facility] 09/27/2013 861354263 Diabetic Retinal Eye Exam [facility] Medical Devices Description No Information Available Encounters Type Date Location Provider Dx Diagnosis Office Visit 04/07/2020 8:40a [facility] 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 E78.00 Pure hypercholesterolemia, u nspecified K75.81 Nonalcoholic steatohepatitis (Fagan) F17.220 Nicotine dependence, chewing tobacco, uncomplicated Z71.6 Tobacco abuse counseling E66.09 Other obesity due to excess calories Z68.30 Body mass index [BMI]30.0-30 .9, adult Assessments Date Code Description Provider 04/07/2020 E11.3291 Type 2 diabetes shelton itus with mild nonproliferative diabetic Darrian Mahoney MD 04/07/2020 E11.36 Type 2 diabetes mellitus with di abetic cataract Darrian Mahoney MD 04/07/2020 E78.00 Pure hypercholesterolemia, unspe cified Darrian Mahoney MD 04/07/2020 K75.81 Nonalcoholic steatohepatitis (Na sh) Darrian Mahoney MD 04/07/2020 F17.220 Nicotine dependence, chewing tob acco, uncomplicated Darrian Mahoney MD 04/07/2020 Z71.6 Tobacco abuse counseling aDrrian Mahoney MD 04/07/2020 E66.09 Other obesity due to excess belen keysha Darrian Mahoney MD 04/07/2020 Z68.30 Body mass index [BMI]30.0-30.9, adult Darrian Mahoney MD Plan of Treatment Future Appointment(s):* 10/29/2020 8:00 am - [facility] 10/03/2019 - Darrian Mahoney MD* E11.3291 [...]
--- OUTSIDE RECORDS SUMMARY | 2020-06-16 06:23 | CCD | Continuity of Care Document ---
Author Author Renny GILES Organization Unknown Address [address] [place] [address] Phone [phone] Care Team Providers Care Extrusion Former Name Role Phone Darrian Mahoney MD AUT[facility] [phone] Problems Active Problems Provider Date Type 2 [...] Available Procedures Date Code Description Status 04/30/2020 38469 MRI Lower Extremity Any Joint Co mpleted Medical Devices Description No Information Available Encounters Description No Information Available Assessments Date Code Description Provider 04/30/2020 M25.561 Pain in right knee Jonathan guillen MD 04/30/2020 M25.561 Pain in right knee MRI 04/30/2020 M25.461 Effusion, right knee Jonathan lopez MD 04/30/2020 M25.461 Effusion, right knee MRI 03/18/2020 M25.561 Pain in right knee Jonathan guillen MD 03/18/2020 M25.461 Effusion, right knee Jonathan lopez MD Plan of Treatment Future Appointment(s):* 05/24/2020 2:00 pm - Jonathan Davidson MD at [place] 03/18/2020 - Jonathan Davidson MD* M25.561 Pain in right knee* Follow up:* with [facility] for rt knee mri results * M25.461 Effusion, right knee Functional Status Description No Information Available Mental Status Description No Information Available Referrals Refer to Dr Reason for Referral Status Appt Date Jonathan Davidson MD MRI NO AUTH REQUIRED PER LEONEL Walsh FOR MRI OF RIGHT KNEE ([id number]) TO XRAY. DG Created [address] [facility], [address] [place] [address] [phone]
--- OUTSIDE RECORDS SUMMARY | 2020-06-16 06:23 | CCD | Continuity of Care Document ---
Author Author Renny Mahoney MD Organization Unknown Address [address] [facility] [address] [place] [address] Phone [phone] Care Team Providers Care Cpa Tax Name Role Phone Darrian Mahoney JR, MD [...] H/L Range Note Complete Blood Count 04/07/2020 [facility] Real Estate Sales Supervisor: Dr Darrian Mahoney [place], [place] [id number] [phone] WBC 6.8 x10*3/UL 4.1 - 10.9 RBC [...] 5.2 x10*3/UL 2.0 - 7.8 A1c 04/07/2020 [facility] , Real Estate Sales Supervisor: [place] [address] [phone] Hba1c 7.5 % High <5.7 1 Est Avg Glucose 169 mg/dL High 60 - 110 Comprehensive Chem Profile 04/07/2020 [facility] Real Estate Sales Supervisor: [place] [address] [phone] Glucose 134 mg/dL High 74 - 99 [...] 60 mL/min >60 3 Lipid Profile 04/07/2020 [facility] Sales Supervisor: [place] [address] [phone] Cholesterol 149 mg/dL 131 - 200 Triglycerides 73 mg/dL 30 - 150 HDL Cholesterol 46 mg/dL 35 - 60 LDL (Calculated) 88 CALC 50 - 159 Microalbumin/Creatinine Urine 04/07/2020 [facility] Sales Supervisor: [place] [address] [phone] Microalbumin Urine 6.9 mg/L 1.3 - 20.0 [...] LITTLE GFR LEFT ESRD GFR <15 ON STRETCHER OPERATOR Procedures Date Code Description Status 04/07/2020 70319 EKG/Interpretation & Report Comp leted 04/02/2020 [id number] Diabetic Retinal Eye Exam Comple paris 07/07/2019 66932270 Colonoscopy Completed 04/16/2019 114876995 Diabetic Retinal Eye Exam Comple [facility] 09/24/2017 196241851 Diabetic Retinal Eye Exam Comple [facility] 02/22/2017 613551192 Diabetic Retinal Eye Exam Comple [facility] 08/28/2016 934557850 Diabetic Retinal Eye Exam Comple [facility] 10/01/2015 425256256 Diabetic Retinal Eye Exam Comple [facility] 03/01/2015 787788346 Diabetic Retinal Eye Exam Comple [facility] 05/20/2014 575067274 Diabetic Retinal Eye Exam Comple [facility] 09/27/2013 623045592 Diabetic Retinal Eye Exam Comple [facility] Medical Devices Description No Information Available Encounters Type Date Location Provider Dx Diagnosis Office Visit 04/07/2020 8:40a [facility] Darrian Mahoney MD E11.3291 Type [...] 8:00 am - [facility] 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
--- OUTSIDE RECORDS SUMMARY | 2020-06-16 06:24 | CCD | Continuity of Care Document ---
Author Author Renny DAVIDSON MD Organization Unknown Address [address] [place] [address] Phone [phone] Care Team Providers Care Cns Name Role Phone Darrian Mahoney MD [facility] [phone] Problems Active Problems Provider Date Type 2 [...] Available Assessments Date Code Description Provider 03/18/2020 M17.11 Unilateral primary osteoarthriti s, right knee Jonathan Davidson MD Plan of Treatment 03/18/2020 - Jonathan Davidson MD* M17.11 Unilateral primary osteoarthritis, right knee* New Xrays:* MRI Right Knee, Ordered: 03/18/20 * Follow up:* with [facility] for rt knee mri results Functional Status Description No Information Available Mental Status Description No Information Available Referrals Description No Information Available
--- OUTSIDE RECORDS SUMMARY | 2020-06-16 06:24 | CCD | Continuity of Care Document ---
Author Author Renny Mahoney MD Organization Unknown Address [address] [facility] [address] [place] [address] Phone [phone] Care Team Providers Care Computer Typesetter Keyliner Name Role Phone Darrian Mahoney JR, MD [...] SIG Qnty Indications Ordering Provide r Date Naproxen 500mg Tablets Take One Tablet By [...] H/L Range Note Complete Blood Count 04/07/2020 [facility] Front Counter Clerk: [place] [address] [phone] WBC 6.8 x10*3/UL 4.1 - 10.9 RBC [...] 5.2 x10*3/UL 2.0 - 7.8 A1c 04/07/2020 [facility] Front Counter Clerk: [place] [address] [phone] Hba1c 7.5 % High <5.7 1 Est Avg Glucose 169 mg/dL High 60 - 110 Comprehensive Chem Profile 04/07/2020 [facility], Front Counter Clerk: [place] [address] [phone] Glucose 134 mg/dL High 74 - 99 [...] 60 mL/min >60 3 Lipid Profile 04/07/2020 [facility] , Front Counter Clerk: [place] [address] [phone] Cholesterol 149 mg/dL 131 - 200 Triglycerides 73 mg/dL 30 - 150 HDL Cholesterol 46 mg/dL 35 - 60 LDL (Calculated) 88 CALC 50 - 159 Microalbumin/Creatinine Urine 04/07/2020 [facility], Front Counter Clerk: [place] [address] [phone] Microalbumin Urine 6.9 mg/L 1.3 - 20.0 [...] LITTLE GFR LEFT ESRD GFR <15 ON WEIGHT CLERK Procedures Date Code Description Status 04/02/2020 [id number] Diabetic Retinal Eye Exam Comple paris 07/07/2019 95953720 Colonoscopy Completed 04/16/2019 366814547 Diabetic Retinal Eye Exam Comple [facility]is 09/24/2017 078226120 Diabetic Retinal Eye Exam Comple paris 02/22/2017 309559210 Diabetic Retinal Eye Exam Comple [facility]is 08/28/2016 807197676 Diabetic Retinal Eye Exam Comple [facility]is 10/01/2015 561672454 Diabetic Retinal Eye Exam Comple [facility] 03/01/2015 968275792 Diabetic Retinal Eye Exam Comple [facility] 05/20/2014 964863662 Diabetic Retinal Eye Exam Comple [facility] 09/27/2013 367868288 Diabetic Retinal Eye Exam Comple [facility] Medical Devices Description No Information Available Encounters Description No Information Available Assessments Date Code Description Provider 04/07/2020 E11.3291 Type 2 diabetes shelton itus with mild nonproliferative diabetic Darrian Mahoney MD 04/07/2020 E11.36 Type 2 diabetes mellitus with di abetic cataract Darrian Mahoney MD 04/07/2020 E78.00 Pure hypercholesterolemia, unspe cified Darrian Mahoney MD 04/07/2020 K75.81 Nonalcoholic steatohepatitis (Na sh) Darrian Mahoney MD 04/07/2020 F17.220 Nicotine dependence, chewing tob acco, uncomplicated Darrian Mahoney MD 04/07/2020 E66.09 Other obesity due to excess belen keysha Darrian Mahoney MD 04/07/2020 Z71.6 Tobacco abuse counseling Darrian Mahoney MD 04/07/2020 Z68.30 Body mass index [BMI]30.0-30.9, adult Darrian Mahoney MD Plan of Treatment Future Appointment(s):* 10/29/2020 8:00 am - Darrian Mahoney MD at [facility] 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 * E66.09 Other obesity due to excess calories * Z71.6 Tobacco abuse counseling * Z68.30 Body mass index [BMI]30.0-30.9, adult Functional Status Description No Information Available Mental Status Description No Information Available Referrals Description No Information Available
--- OUTSIDE RECORDS SUMMARY | 2020-06-16 06:24 | CCD | Continuity of Care Document ---
Author Author Renny Mahoney MD Organization Unknown Address [address] [facility] [address] [place] [address] Phone [phone] Care Team Providers Care End Trimmer Name Role Phone Darrian Mahoney JR, MD [...] Date Facility Test Result H/L Range Note Laboratory test finding 04/07/2020 [facility] Specialist: Dr Darrian Mahoney [place] [id number] [phone] A1c <pending> Procedures Date Code Description Status 04/02/2020 [id number] Diabetic Retinal Eye Exam Comple paris 07/07/2019 20849751 Colonoscopy Completed 04/16/2019 072051107 Diabetic Retinal Eye Exam Comple [facility] 09/24/2017 700479395 Diabetic Retinal Eye Exam Comple [facility] 02/22/2017 201564567 Diabetic Retinal Eye Exam Comple [facility] 08/28/2016 683162830 Diabetic Retinal Eye Exam Comple [facility] 10/01/2015 506537105 Diabetic Retinal Eye Exam Comple [facility] 03/01/2015 402658873 Diabetic Retinal Eye Exam Comple [facility] 05/20/2014 348013344 Diabetic Retinal Eye Exam Comple [facility] 09/27/2013 045533390 Diabetic Retinal Eye Exam [facility] Medical Devices Description No Information Available Encounters Description No Information Available Assessments Description No Information Available Plan of Treatment No Information Available Functional Status Description No Information Available Mental Status Description No Information Available Referrals Description No Information Available
--- OUTSIDE RECORDS SUMMARY | 2020-06-16 06:24 | CCD | Continuity of Care Document ---
Author Author Renny MAC MD Organization Unknown Address [address] [place] [address] Phone [phone] Care Team Providers Care Biostatistics Director Name Role Phone Darrian Mahoney MD [facility] [phone] Problems Active Problems Provider Date Type 2 [...] knee Jonathan lopez MD Plan of Treatment 03/18/2020 - Jonathan Mac MD* M25.561 Pain in right knee* New Xrays:* MRI Right Knee, Ordered: 03/18/20 * Follow up:* with [facility] for rt knee mri results * M25.461 Effusion, right knee Functional Status Description No Information Available Mental Status Description No Information Available Referrals Description No Information Available
--- OUTSIDE RECORDS SUMMARY | 2020-06-16 06:24 | CCD ---
Author Author [facility] Organization [facility] Address Unknown Phone Unavailable Care Team Providers Care Legal Services Manager Name Role Phone Ishaan Ledbetter, Kimani Ortiz MD, FACS Unavailable Unavailable Quiros Ledbetter, Kimani Ortiz MD, FACS Unavailable Unavailable Quiros Ledbetter, Kimani Ortiz MD, FACS Unavailable Unavailable Quiros Ledbetter, Kimani Ortiz MD, FACS Unavailable Unavailable Quiros Ledbetter, Kimani Ortiz MD, FACS Unavailable Unavailable Quiros Ledbetter, Kimani Ortiz MD, FACS Unavailable Unavailable Quiros Ledbetter, Kimani Ortiz MD, FACS Unavailable Unavailable Quiros Ledbetter, Kimani Ortiz MD, FACS Unavailable Unavailable Quiros Ledbetter, Kimani Ortiz MD, FACS Unavailable Unavailable Quiros Ledbetter, Kimani Ortiz MD, FACS Unavailable Unavailable Quiros Ledbetter, Kimani Ortiz MD, FACS Unavailable Unavailable Quiros Ledbetter, Kimani Ortiz MD, FACS Unavailable Unavailable Quiros Ledbetter, Kimani Ortiz MD, FACS Unavailable Unavailable Quiros Ledbetter, Kimani Ortiz MD, FACS Unavailable Unavailable Quiros Ledbetter, Kimani Ortiz MD, FACS Unavailable Unavailable Quiros Ledbetter, Kimani Ortiz MD, FACS Unavailable Unavailable Quiros Ledbetter, Kimani Ortiz MD, FACS Unavailable Unavailable Quiros Ledbetter, Kimani Ortiz MD, FACS Unavailable Unavailable Quiros Ledbetter, Kimani Ortiz MD, FACS Unavailable Unavailable Quiros Ledbetter, Kimani Ortiz MD, FACS Unavailable Unavailable Quiros Ledbetter, Kimani Ortiz MD, FACS Unavailable Unavailable Quiros Ledbetter, Kimani Ortiz MD, FACS Unavailable Unavailable Quiros Ledbetter, Kimani Ortiz MD, FACS Unavailable Unavailable Quiros Ledbetter, Kimani Ortiz MD, FACS Unavailable Unavailable Quiros Ledbetter, Kimani Ortiz MD, FACS Unavailable Unavailable Ishaan Ledbetter, Kimani Ortiz MD, FACS Unavailable Unavailable Ishaan Ledbetter, Kimani Ortiz MD, FACS Unavailable Unavailable Ishaan Ledbetter, Kimani Ortiz MD, FACS Unavailable Unavailable Ishaan Ledbetter, Kimani Ortiz MD, FACS Unavailable Unavailable Ishaan Ledbetter, Kimani Ortiz MD, FACS Unavailable Unavailable Ishaan Ledbetter, Kimani Ortiz MD, FACS Unavailable Unavailable Ishaan Ledbetter, Kimani Ortiz MD, FACS Unavailable Unavailable Ishaan Ledbetter, Kimani Ortiz MD, FACS Unavailable Unavailable Ishaan Ledbetter, Kimani Ortiz MD, FACS Unavailable Unavailable Mollison, Florencia Flores MD Unavailable Unavailable Mollison, Florencia Flores MD Unavailable Unavailable Mollison, Florencia Flores MD Unavailable Unavailable Mollison, Florencia Flores MD Unavailable Unavailable Mollison, Florencia Flores MD Unavailable Unavailable Mollison, Florencia Flores MD Unavailable Unavailable Mollison, Florencia Flores MD Unavailable Unavailable Mollison, Florencia Flores MD Unavailable Unavailable Mollison, Florencia Flores MD Unavailable Unavailable Mollison, Florencia Flores MD Unavailable Unavailable MollisonFlorencia MD Unavailable Unavailable MollisonFlorencia MD Unavailable Unavailable MollisonFlorencia MD Unavailable Unavailable MollisonFlorencia MD Unavailable Unavailable MollisonFlorencia MD Unavailable Unavailable Mollison, Florencia Flores MD Unavailable Unavailable MollisonFlorencia MD Unavailable Unavailable MollisonFlorencia MD Unavailable Unavailable MollisonFlorencia MD Unavailable Unavailable MollisonFlorencia MD Unavailable Unavailable MollisonFlorencia MD Unavailable Unavailable MollisonFlorencia MD Unavailable Unavailable Jeremiah Mahoney MD Unavailable Unavailable KingstonJeremiah buck MD Unavailable Unavailable KingstonJeremiah buck MD Unavailable Unavailable KingstonJeremiah buck MD Unavailable Unavailable KingstonJeremiah buck MD Unavailable Unavailable KingstonJeremiah buck MD Unavailable Unavailable KingstonJeremiah buck MD Unavailable Unavailable KingstonJeremiah buck MD Unavailable Unavailable KingstonJeremiah buck MD Unavailable Unavailable DenzelJeremiah buck MD Unavailable Unavailable DenzelJeremiah buck MD Unavailable Unavailable DenzelJeremiah buck MD Unavailable Unavailable DenzelJeremiah buck MD Unavailable Unavailable KingstonJeremiah MD Unavailable Unavailable DenzelJeremiah buck MD Unavailable Unavailable DenzelJeremiah buck MD Unavailable Unavailable DenzelJeremiah MD Unavailable Unavailable KingstonJeremiah MD Unavailable Unavailable KingstonJeremiah MD Unavailable Unavailable DenzelJeremiah buck MD Unavailable Unavailable DenzelJeremiah MD Unavailable Unavailable DenzelJeremiah MD Unavailable Unavailable DenzelJeremiah MD Unavailable Unavailable DenzelJeremiah MD Unavailable Unavailable DenzelJeremiah MD Unavailable Unavailable KingstonJeremiah MD Unavailable Unavailable DenzelJeremiah MD Unavailable Unavailable KingstonJeremiah MD Unavailable Unavailable DenzelJeremiah MD Unavailable Unavailable DenzelJeremiah MD Unavailable Unavailable KingstonJeremiah MD Unavailable Unavailable KingstonJeremiah MD Unavailable Unavailable KingstonJeremiah MD Unavailable Unavailable DenzelJeremiah MD Unavailable Unavailable KingstonJeremiah MD Unavailable Unavailable KingstonJeremiah MD Unavailable Unavailable DenzelJeremiah MD Unavailable Unavailable DenzelJeremiah MD Unavailable Unavailable DenzelJeremiah MD Unavailable Unavailable KingstonJeremiah MD Unavailable Unavailable KingstonJeremiah MD Unavailable Unavailable DenzelJeremiah MD Unavailable Unavailable DenzelJeremiah MD Unavailable Unavailable DenzelJeremiah MD Unavailable Unavailable DenzelJeremiah MD Unavailable Unavailable DenzelJeremiah MD Unavailable Unavailable KingstonJeremiah MD Unavailable Unavailable KingstonJeremiah MD Unavailable Unavailable KingstonJeremiah MD Unavailable Unavailable KingstonJeremiah MD Unavailable Unavailable DenzelJeremiah MD Unavailable Unavailable KingstonJeremiah MD Unavailable Unavailable KingstonJeremiah MD Unavailable Unavailable DenzelJeremiah MD Unavailable Unavailable DenzelJeremiah MD Unavailable Unavailable DenzelJeremiah MD Unavailable Unavailable KingstonJeremiah MD Unavailable Unavailable DenzelJeremiah MD Unavailable Unavailable DenzelJeremiah MD Unavailable Unavailable DenzelJeremiah MD Unavailable Unavailable DenzelJeremiah buck MD Unavailable Unavailable KingstonJeremiah MD Unavailable Unavailable KingstonJeremiah MD Unavailable Unavailable KingstonJeremiah buck MD Unavailable Unavailable EdnzelJeremiah MD Unavailable Unavailable KingstonJeremiah MD Unavailable Unavailable DenzelJeremiah buck MD Unavailable Unavailable KingstonJeremiah buck MD Unavailable Unavailable KingstonJeremiah MD Unavailable Unavailable KingstonJeremiah MD Unavailable Unavailable KingstonJeremiah MD Unavailable Unavailable DenzelJeremiah MD Unavailable Unavailable KingstonJeremiah MD Unavailable Unavailable DenzelJeremiah MD Unavailable Unavailable KingstonJeremiah MD Unavailable Unavailable DenzelJeremiah MD Unavailable Unavailable KingstonJeremiah MD Unavailable Unavailable DenzelJeremiah MD Unavailable Unavailable DenzelJeremiah MD Unavailable Unavailable DenzelJeremiah MD Unavailable Unavailable KingstonJeremiah MD Unavailable Unavailable Kingston, Jeremiah Colmenares MD Unavailable Unavailable Kingston, Jeremiah Colmenares MD Unavailable Unavailable Kingston, Jeremiah Colmenares MD Unavailable Unavailable Denzel, Jeremiah Colmenares MD Unavailable Unavailable Denzel, Jeremiah Colmenares MD Unavailable Unavailable CHER, PEDRO MOISES RUBY ON RAILS ENGINEER-C Unavailable Unavailable CHER, PEDRO MOISES RUBY ON RAILS ENGINEER-C Unavailable Unavailable CHER, PEDRO MOISES RUBY ON RAILS ENGINEER-C Unavailable Unavailable CHER, PEDRO MOISES RUBY ON RAILS ENGINEER-C Unavailable Unavailable CHER, PEDRO MOISES RUBY ON RAILS ENGINEER-C Unavailable Unavailable CHER, PEDRO MOISES RUBY ON RAILS ENGINEER-C Unavailable Unavailable CHER, PEDRO MOISES RUBY ON RAILS ENGINEER-C Unavailable Unavailable CHER, PEDRO MOISES RUBY ON RAILS ENGINEER-C Unavailable Unavailable CHER, PEDRO MOISES RUBY ON RAILS ENGINEER-C Unavailable Unavailable CHER, PEDRO MOISES RUBY ON RAILS ENGINEER-C Unavailable Unavailable CHER, PEDRO MOISES RUBY ON RAILS ENGINEER-C Unavailable Unavailable CHER, PEDRO MOISES RUBY ON RAILS ENGINEER-C Unavailable Unavailable CHER, PEDRO MOISES RUBY ON RAILS ENGINEER-C Unavailable Unavailable CHER, PEDRO MOISES RUBY ON RAILS ENGINEER-C Unavailable Unavailable CHER, PEDRO MOISES RUBY ON RAILS ENGINEER-C Unavailable Unavailable Mollison, Florencia Flores MD Unavailable Unavailable Mollison, Florencia Flores MD Unavailable Unavailable Mollison, Florencia Flores MD Unavailable Unavailable Mollison, Florencia Flores MD Unavailable Unavailable Mollison, Florencia Flores MD Unavailable Unavailable Mollison, Florencia Flores MD Unavailable Unavailable Mollison, Florencia Flores MD Unavailable Unavailable Mollison, Florencia Flores MD Unavailable Unavailable Mollison, Florencia Flores MD Unavailable Unavailable Mollison, Florencia Flores MD Unavailable Unavailable Mollison, Florencia Flores MD Unavailable Unavailable Mollison, Florencia Flores MD Unavailable Unavailable Mollison, Florencia Flores MD Unavailable Unavailable Mollison, Florencia Flores MD Unavailable Unavailable Mollison, Florencia Flores MD Unavailable Unavailable Mollison, Florencia Flores MD Unavailable Unavailable Mollison, Florencia Flores MD Unavailable Unavailable Mollison, Florencia Flores MD Unavailable Unavailable Mollison, Florencia Flores MD Unavailable Unavailable Mollison, Florencia Flores MD Unavailable Unavailable Mollison, Florencia Flores MD Unavailable Unavailable Mollison, Florencia Flores MD Unavailable Unavailable Fish, Ivone Castillo MD Unavailable Unavailable Fish, Ivone Castillo MD Unavailable Unavailable Fish, Ivone Castillo MD Unavailable Unavailable Fish, Ivone Castillo MD Unavailable Unavailable Fish, Ivone Castillo MD Unavailable Unavailable Fish, Ivone Castillo MD Unavailable Unavailable Fish, Ivone Castillo MD Unavailable Unavailable Fish, Ivone Castillo MD Unavailable Unavailable Fish, B Jonathan ALEXANDRE Unavailable Unavailable Fish, B Jonathan ALEXANDRE Unavailable Unavailable Fish, B Jonathan ALEXANDRE Unavailable Unavailable Fish, B Jonathan ALEXANDRE Unavailable Unavailable Fish, B Jonathan ALEXANDRE Unavailable Unavailable Fish, B Jonathan ALEXANDRE Unavailable Unavailable Fish, B Jonathan ALEXANDRE Unavailable Unavailable Fish, B Jonathan ALEXANDRE Unavailable Unavailable Fish, B Jonathan ALEXANDRE Unavailable Unavailable Fish, B Jonathan ALEXANDRE Unavailable Unavailable Fish, B Jonathan ALEXANDRE Unavailable Unavailable Fish, B Jonathan ALEXANDRE Unavailable Unavailable Fish, B Jonathan ALEXANDRE Unavailable Unavailable Fish, B Jonathan ALEXANDRE Unavailable Unavailable Fish, B Jonathan ALEXANDRE Unavailable Unavailable Fish, B Jonathan ALEXANDRE Unavailable Unavailable Fish, B Jonathan ALEXANDRE Unavailable Unavailable Fish, B Jonathan ALEXANDRE Unavailable Unavailable Fish, B Jonathan ALEXANDRE Unavailable Unavailable Fish, B Jonathan ALEXANDRE Unavailable Unavailable Fish, B Jonathan ALEXANDRE Unavailable Unavailable Fish, B Jonathan ALEXANDRE Unavailable Unavailable Fish, B Jonathan ALEXANDRE Unavailable Unavailable Fish, B Jonathan ALEXANDRE Unavailable Unavailable Fish, B Jonathan ALEXANDRE Unavailable Unavailable Fish, B Jonathan ALEXANDRE Unavailable Unavailable Fish, B Jonathan ALEXANDRE Unavailable Unavailable Fish, B Jonathan ALEXANDRE Unavailable Unavailable Fish, B Jonathan ALEXANDRE Unavailable Unavailable Fish, B Jonathan ALEXANDRE Unavailable Unavailable Fish, B oJnathan ALEXANDRE Unavailable Unavailable Fish, B Jonathan ALEXANDRE Unavailable Unavailable Fish, B Jonathan ALEXANDRE Unavailable Unavailable Fish, B Jonathan ALEXANDRE Unavailable Unavailable Fish, B Jonathan ALEXANDRE Unavailable Unavailable Fish, B Jonathan ALEXANDRE Unavailable Unavailable Fish, B Jonathan ALEXANDRE Unavailable Unavailable Fish, B Jonathan ALEXANDRE Unavailable Unavailable Fish, B Jonathan ALEXANDRE Unavailable Unavailable Fish, B Jonathan ALEXANDRE Unavailable Unavailable Fish, B Jonathan ALEXANDRE Unavailable Unavailable Fish, B Jonathan ALEXANDRE Unavailable Unavailable Fish, B Jonathan ALEXANDRE Unavailable Unavailable Fish, B Jonathan ALEXANDRE Unavailable Unavailable Fish, B Jonathan ALEXANDRE Unavailable Unavailable Fish, B Jonathan ALEXANDRE Unavailable Unavailable Fish, B Jonathan ALEXANDRE Unavailable Unavailable Fish, B Jonathan ALEXANDRE Unavailable Unavailable Fish, B Jonathan ALEAXNDRE Unavailable Unavailable Fish, B Jonathan ALEXANDRE Unavailable Unavailable Fish, B Jonathan ALEXANDRE Unavailable Unavailable Fish, B Jonathan ALEXANDRE Unavailable Unavailable Fish, B Jonathan ALEXANDRE Unavailable Unavailable Fish, B Jonathan ALEXANDRE Unavailable Unavailable Fish, B Jonathan ALEXANDRE Unavailable Unavailable Fish, B Jonathan ALEXANDRE Unavailable Unavailable Fish, B Jonathan ALEXANDRE Unavailable Unavailable Fish, B Jonathan ALEXANDRE Unavailable Unavailable Fish, B Jonathan ALEXANDRE Unavailable Unavailable Fish, B Jonathan ALEXANDRE Unavailable Unavailable Fish, B Jonathan ALEXANDRE Unavailable Unavailable Fish, B Jonathan ALEXANDRE Unavailable Unavailable Fish, B Jonathan MD Unavailable Unavailable Fish, B Jonathan MD Unavailable Unavailable Fish, B Jonathan MD Unavailable Unavailable Fish, B Jonathan MD Unavailable Unavailable Fish, B Jonathan MD Unavailable Unavailable Fish, B Jonathan MD Unavailable Unavailable Fish, B Jonathan MD Unavailable Unavailable Fish, B Jonathan MD Unavailable Unavailable Fish, B Jonathan MD Unavailable Unavailable Fish, B Jonathan MD Unavailable Unavailable Fish, B Jonathan MD Unavailable Unavailable Fish, B Jonathan MD Unavailable Unavailable Fish, B Jonathan MD Unavailable Unavailable Fish, B Jonathan MD Unavailable Unavailable Fish, B Jonathan MD Unavailable Unavailable Fish, B Jonathan MD Unavailable Unavailable Fish, B Jonathan MD Unavailable Unavailable Fish, B Jonathan MD Unavailable Unavailable Fish, B Jonathan MD Unavailable Unavailable Fish, B Jonathan MD Unavailable Unavailable Fish, B Jonathan MD Unavailable Unavailable Fish, B Jonathan MD Unavailable Unavailable Fish, B Jonathan MD Unavailable Unavailable Fish, B Jonathan MD Unavailable Unavailable Fish, B Jonathan MD Unavailable Unavailable Fish, B Jonathan MD Unavailable Unavailable Fish, B Jonathan MD Unavailable Unavailable Fish, B Jonathan MD Unavailable Unavailable Fish, B Jonathan MD Unavailable Unavailable Fish, B Jonathan MD Unavailable Unavailable Fish, B Jonathan MD Unavailable Unavailable Fish, B Jonathan MD Unavailable Unavailable Fish, B Jonathan MD Unavailable Unavailable Fish, B Jonathan MD Unavailable Unavailable Fish, B Jonathan MD Unavailable Unavailable Fish, B Jonathan MD Unavailable Unavailable Re-disclosure Warning The records that you are about to access may contain information from federally-assisted alcohol or drug abuse programs. If such information is present, then the following federally mandated warning applies: This information has been disclosed to you from records protected by federal confidentiality rules (42 CFR part 2). The federal rules prohibit you from making any further disclosure of this information unless further disclosure is expressly permitted by the written consent of the person to whom it pertains or as otherwise permitted by 42 CFR part 2. A general authorization for the release of medical or other information is NOT sufficient for this purpose. The Federal rules restrict any use of the information to criminally investigate or prosecute any alcohol or drug abuse patient.The records that you are about to access may contain highly sensitive health information, the redisclosure of which is protected by Article 27-F of the [facility] Public Health law. If you continue you may have access to information: Regarding HIV / AIDS; Provided by facilities licensed or operated by the [facility] Office of Mental Health; or Provided by the [facility] Office for People With Developmental Disabilities. If such information is present, then the following [facility] mandated warning applies: This information has been disclosed to you from confidential records which are protected by state law. State law prohibits you from making any further disclosure of this information without the specific written consent of the person to whom it pertains, or as otherwise permitted by law. Any unauthorized further disclosure in violation of state law may result in a fine or snf sentence or both. A general authorization for the release of medical or other information is NOT sufficient authorization for further disc losure. Family History Family Member Name Family Member Gender Family Member Status Date o f Status Description Data Source(s) Unknown Male Problem [facility] ([facility]) Unknown Unknown Problem [facility] (Lane Castellanos MD, ) Unknown Male Problem [facility] ([facility]) () Unknown Unknown Problem [facility] ([facility]) Unknown Unknown Problem [facility] ([facility]) Unknown Unknown Problem [facility] ([facility]) Encounters Encounter Providers Location Date Indications Data Source(s ) Outpatient Attender: Darrian Ivan 0 06/08/2020 12:30:00 PM EST [facility] ([facility] ) Outpatient Attender: Jonathan Davidson MD Physical Therapy 05/24/2020 0 1:00:00 PM EST [facility] ([facility]) Outpatient Attender: Mark Solano/Minda/Nickolas/Re indl 04/29/2020 12:30:00 PM EST [facility] ([facility], ) Outpatient Attender: Darrian Ivan 1 06/07/2019 07:40:00 AM EST [facility] ([facility] ) Outpatient Attender: Mark Solano/Minda/Nickolas/Re indl 03/16/2020 12:00:00 PM EST [facility] ([facility], ) Outpatient Attender: MOISES MOSQUEDAP-Gustavo Solano/Minda/Nickolas/R eindl 11/11/2019 03:45:00 PM EDT [facility] ([facility], ) Outpatient<td ID="encounterTypeDescripti onID0">IOP CHECK</td><td>Angel Ledbetter MD, FACS</td><td>Angel Loya MD [facility]</td><td>10/09/2019</td><td><content ID="encounterDiagnosisID0-0">Glaucoma Open-angle Primary Left Eye</content>, <content ID="encounterDiagnosisID0- 1">Glaucoma Open-angle Primary Right Eye</content></td> Attender: Angel Ledbetter MD, VALENTIN Loya MD [facility] 10/09/2019 03:57:00 PM EDT - 10/09/2019 04:14:00 PM EDT Glaucoma Open-angle Primary Right EyeGla ucoma Open-angle Primary Left Eye [facility] (Angle Ledbetter MD [facility]) Glaucoma Open-angle Primary Right Eye Glaucoma Open-angle Primary Left Eye Outpatient Attender: Mark Solano/Minda/Nickolas/Ana Maria indl 10/07/2019 03:30:00 PM EDT [facility] ([facility], ) Outpatient Attender: Darrian Ivan 0 10/03/2019 11:40:00 AM EDT [facility] ([facility] ) Outpatient<td ID="encounterTypeDescripti onID1">Rx Refills/Changes</td><td>Angel Loya MD, FACS</td><td></td><td>10/02/2019</td><td></td> Attender: Angel Ledbetter MD, FACS 10/02/2019 08:02:00 AM EDT - 10/02/2019 11:5 9:00 PM EDT [facility] (Angel Ledbetter MD [facility]) Outpatient Referrer: Mark Spangler MD 09/26/2019 09:16:00 AM EDT [facility] Outpatient Referrer: Mark Spangler MD 09/17/2019 12:46:00 PM EDT [facility] Outpatient Referrer: Jonathan Davidson MD 09/17/2019 12:44:00 PM EDT [facility] Outpatient Referrer: Jonathan Davidson MD 09/17/2019 12:42:00 PM EDT [facility] Outpatient Attender: Mark Solano/Arthur/Nickolas/Re indl 09/10/2019 01:30:00 PM EDT [facility] Outpatient Attender: MOISES Solano/Arthur/Nickolas/R eindl 07/18/2019 09:00:00 AM EST [facility] ([facility], ) Outpatient Attender: MOISES Solano/Arthur/Nickolas/R eindl 05/05/2019 09:45:00 AM EST [facility] Outpatient Attender: MOISES Solano/Arthur/Nickolas/R eindl 04/17/2019 07:15:00 AM EST [facility] ([facility], ) Immunizations Vaccine Date Status Description Data Source(s) INFLUENZA VIRUS VACCINE QUADRIVAL [id number](6 MOS AND UP)/PF 01/29/2020 12:00:00 AM EDT completed [facility] Medications Medication Brand Name Start Date Product Form Dose Route Admi nistrative Instructions Pharmacy Instructions Status Indications Reaction Description Data Source(s) Cyclobenzaprine hydrochloride 10 MG Oral Tablet CYCLOBENZAPR INE HCL 06/08/2020 12:00:00 AM EST tablet 21 TAKE ONE TABLET BY MOUTH THREE TIMES A DAY NEEDED TAKE ONE TABLET BY MOUTH THREE TIMES A DAY NEEDED SOLD: 06/09/2020 [facility] Cyclobenzaprine hydrochloride 10 MG Oral Tablet Cyclobenzapr ine HCL 06/08/2020 12:00:00 AM EST ORAL active M [facility] ([facility]) sitagliptin 100 MG Oral Tablet [Januvia] Januvia 04/13/2020 12:00: 00 AM EST ORAL active [facility] ([facility]) 0.5 % 02/04/2020 12:00:00 AM EDT gel forming solution 5 INSTILL 1 DROP INTO THE LEFT EYE ONCE EVERY MORNING INSTILL 1 DROP INTO THE LEFT EYE ONCE EV ZULY MORNING SOLD: 03/04/2020 [facility] 0.5 % 02/04/2020 12:00:00 AM EDT gel forming solution 5 INSTILL 1 DROP INTO THE LEFT EYE ONCE EVERY MORNING INSTILL 1 DROP INTO THE LEFT EYE ONCE EV ZULY MORNING SOLD: 02/06/2020 [facility] bimatoprost 0.1 MG/ML Ophthalmic Solutio n [Lumigan] Lumigan 0.01% Ophthalmic Solution Lumigan 0.01% Ophthalmic Solution 10/02/2019 12:00:00 AM EDT 1 active bimatoprost 0.1 MG/ML Ophthalmic Solution [Lumigan] [facility] (Angel Ledbetter MD [facility]) travoprost 0.04 MG/ML Ophthalmic Solutio n [Travatan] Travatan Z 0.004% Ophthalmic Solution Travatan Z 0.004% Ophthalmic Solution 10/02/2019 12:00 :00 AM EDT 1 active travoprost 0.04 M G/ML Ophthalmic Solution [Travatan] [facility] (Angel Ledbetter MD [facility]) Acetaminophen 325 MG / Hydrocodone Bitartrate 5 MG Ora l Tablet Hydrocodone-Acetaminophen 06/17/2019 12:00:00 AM EST ORAL active [facility] ([facility]) 5-325 mg 06/17/2019 12:00:00 AM EST tablet 20 TAKE ONE TABLET BY MOUTH EVERY 4 HOURS NEEDED FOR POST OPERATIVE PAIN MAXIMUM DAILY DOSE = 6 TAKE ONE TABLET BY MOUTH EVERY 4 HOURS NEEDED FOR POST OPERATIVE PAIN MAXIMUM DAILY DOSE = 6 SOLD: 06/17/2019 [facility] 17.5-3.13-1.6 gram 06/11/2019 12:00:00 AM EST recon soln 354 USE DIRECTED USE DIRECTED SOLD: 06/12/2019 [facility] Suprep Bowel Prep Kit Suprep Bowel Prep Kit 06/10/2019 12:00:00 AM EST active [facility] ([facility]) CPAP 06/04/2019 12:00:00 AM EST active [facility] ([facility]) Timolol 0.005 MG/MG Ophthalmic Gel Timol ol Maleate 0.5% Ophthalmic Gel Forming Solution Timolol Maleate 0.5% Ophthalmic Gel Forming Solution 0 02/04/2019 12:00:00 AM EDT 1 active Timolol 0.005 MG/MG Ophthalmic Gel [facility] (Angel Ledbetter MD [facility]) bimatoprost 0.1 MG/ML Ophthalmic Solutio n [Lumigan] Lumigan 0.01% Ophthalmic Solution Lumigan 0.01% Ophthalmic Solution 01/27/2019 12:00:00 AM EDT 1 aborted bimatoprost 0.1 MG/ML Ophthalmic Solution [Lumigan] [facility] (Angel Ledbetter MD [facility]) Insurance Providers Payer name Policy type / Coverage type Policy ID Covered green party ID Covered green party's relationship to owen Policy Owen Plan Information [employer] COMP [id number] SP [id number] [employer] COMP [id number] SP [id number] [facility] C[facility] [id number] SP [id number] [employer] Other 0 Self 0 ONE CALL CARE MANAGEMENT O [id number] S [id number] [facility] [facility] CARE [id number] SP [id number] [employer] Other 0 Self 0 [employer]pa ([place]) Workers Compensation [id number] Self [id number] [place] (pr) Medigap Part B [id number] Self [id number] Umr (pr) Commercial [id number] Self [id number] [employer]/Tpa ([place]) Workers Compensation [id number] Self [id number] [place] (pr) Medigap Part B [id number] Self [id number] Umr (pr) Commercial [id number] Self [id number] [employer] Medigap Part B [id number] Self [id number] [place] (Old) Medigap Part B [id number] Self [id number] Umr ([place]) Commercial [id number] Self [id number] [place] Medigap Part B [id number] Self [id number] [place] (Old) Medigap Part B [id number] Self [id number] UMR [facility] [id number] SP [id number] [place] Medigap Part B [id number] Self [id number] [place] (Old) Medigap Part B [id number] Self [id number] [place] Medigap Part B [id number] Self [id number] [place] (Old) Medigap Part B [id number] Self [id number] [employer] [id number] S [id number] [place] (WC) Workers Compensation [id number] Self [id number] [place] (pr) Commercial [id number] Self [id number] [employer] PPO O [id number] S [id number] [place] ([place]) Workers Compensation [id number] Self [id number] [place] (pr) Commercial [id number] Self [id number] [employer] [id number] SP [id number] [place] Medigap Part B Self [place] Ppo Commercial 333 Self 333 [employer] [id number] SP [id number] [place] Medigap Part B Self [employer] Commercial Self [place](WC/[facility]) Workers Compensation Self [employer] W/C [id number] SP [id number] WORKERS COMPENSATION GENERIC W [id number] Self [id number] [employer] O [id number] S [id number] WC [place] [id number] 18 [id number] Problems, Conditions, and Diagnoses Code Display Name Description Problem Type Effective Dates Data Source(s) [id number] Screening for malignant neoplasm of colo n Screening for malignant neoplasm of colon Problem 06/10/2019 12:00:00 AM EST [facility] ([facility]) Surgeries/Procedures Procedure Description Date Indications Data Source(s) MRI Lower Extremity Any Joint 04/30/2020 12:00:[address] [facility] ([facility]) ECG ROUTINE ECG W/LEAST 12 LDS W/I&R 04/07/2020 12:00: 00 AM EST [facility] ([facility]) Diabetic Retinal Eye Exam 04/02/2020 12:00:00 AM EST [facility] ([facility]) Inject/Drain Arthrocentesis Major Joint/Bursa/Ganglion Cyst 03/16/2020 12:00:00 AM EST [facility] ([facility]) History of diabetes mellitus Type 2, Dx : 2008, A1C: high with Dr. Mahoney FBS: does not check History of diabetes mellitus Type 2, Dx : 2008, A1C: high with Dr. Mahoney FBS: does not check 10/09/2019 12:00:00 AM [place] (Angel Ledbetter MD [facility]) Surgical / procedural history Lower donn k surgery - 02/18/14, Repair Retinal Detachment Left Eye Surgical / procedural history Lower donn k surgery - 02/18/14, Repair Retinal Detachment Left Eye 10/09/2019 12:00:00 AM EDT EDITH (Angel Ledbetter MD [facility]) Intermediate Eye Exam Established Patient Intermediate Eye Exam Established Patient 10/09/2019 12:00:00 AM EDT EDITH (Kris Ledbetter MD [facility]) X-Ray Shoulder Complete 09/10/2019 12:00:00 AM EDT [facility] ([facility], ) RADEX SHOULDER COMPLETE MINIMUM 2 VIEWS 09/10/2019 12: 00:00 AM EDT [facility] ([facility] ) APPLICATION MODALITY 1/> AREAS HOT/COLD PACKS 07/24/19 12:00:00 AM EDT [facility] ([facility] ) THERAPEUTIC PX 1/> AREAS EACH 15 MIN EXERCISES 12:00:00 AM EDT [facility] ([facility]) THERAPEUTIC PX 1/> AREAS EACH 15 MIN EXERCISES 12:00:00 AM EDT [facility] ([facility] APPLICATION MODALITY 1/> AREAS HOT/COLD PACKS 07/21/19 12:00:00 AM EDT [facility] ([facility]) THERAPEUTIC PX 1/> AREAS EACH 15 MIN EXERCISES 12:00:00 AM EDT [facility] ([facility] ) THERAPEUTIC PX 1/> AREAS EACH 15 MIN EXERCISES 12:00:00 AM EDT [facility] ([facility] ) APPLICATION MODALITY 1/> AREAS HOT/COLD PACKS 07/17/19 12:00:00 AM EST [facility] ([facility] ) THERAPEUTIC PX 1/> AREAS EACH 15 MIN EXERCISES 12:00:00 AM EST [facility] ([facility] ) THERAPEUTIC PX 1/> AREAS EACH 15 MIN EXERCISES 12:00:00 AM EST [facility] ([facility] ) APPLICATION MODALITY 1/> AREAS HOT/COLD PACKS 07/15/19 12:00:00 AM EST [facility] ([facility] ) THERAPEUTIC PX 1/> AREAS EACH 15 MIN EXERCISES 12:00:00 AM EST [facility] ([facility] ) THERAPEUTIC PX 1/> AREAS EACH 15 MIN EXERCISES 12:00:00 AM EST [facility] ([facility]) THERAPEUTIC PX 1/> AREAS EACH 15 MIN EXERCISES 12:00:00 AM EST [facility] ([facility]) THERAPEUTIC PX 1/> AREAS EACH 15 MIN EXERCISES 12:00:00 AM EST [facility] ([facility]) APPLICATION MODALITY 1/> AREAS HOT/COLD PACKS 07/10/19 20 12:00:00 AM EST [facility] ([facility]) APPLICATION MODALITY 1/> AREAS HOT/COLD PACKS 07/08/19 12:00:00 AM EST [facility] ([facility]) THERAPEUTIC PX 1/> AREAS EACH 15 MIN EXERCISES 12:00:00 AM EST [facility] ([facility]) Colonoscopy 07/07/2019 12:00:00 AM EST M [facility]ENT [facility] APPLICATION MODALITY 1/> AREAS HOT/COLD PACKS 07/04/19 12:00:00 AM EST [facility] ([facility]) THERAPEUTIC PX 1/> AREAS EACH 15 MIN EXERCISES 12:00:00 AM EST [facility] ([facility]) THERAPEUTIC PX 1/> AREAS EACH 15 MIN EXERCISES 12:00:00 AM EST [facility] ([facility]) APPLICATION MODALITY 1/> AREAS HOT/COLD PACKS 06/30/19 12:00:00 AM EST [facility] ([facility]) THERAPEUTIC PX 1/> AREAS EACH 15 MIN EXERCISES 12:00:00 AM EST [facility] ([facility]) APPLICATION MODALITY 1/> AREAS HOT/COLD PACKS 06/26/19 12:00:00 AM EST [facility] ([facility]) THERAPEUTIC PX 1/> AREAS EACH 15 MIN EXERCISES 12:00:00 AM EST [facility] ([facility]) THERAPEUTIC PX 1/> AREAS EACH 15 MIN EXERCISES 12:00:00 AM EST [facility] ([facility] ) Physical Therapy Eval - Low Complexity 06/23/2019 12:0 0:00 AM EST [facility] ([facility] ) Arthroscopy Knee W/Meniscectomy Inc Chondroplasty (Med & Lat eral) 06/17/2019 12:00:00 AM EST [facility] ([facility]) Results ID Date Data Source [id number] 06/11/2020 10:00:00 AM EST [facility] Name Value Range Interpretation Code Description Data Anel rce(s) Supporting Document(s) SARS coronavirus 2 RNA Not Detected [facility] [place] This lab was ordered by [facility] and reported by [facility]. ID Date Data Source [id number] 04/07/2020 08:00:00 AM EST [facility] ([facility]) Name Value Range Interpretation Code Description Data Anel rce(s) Supporting Document(s) Urine Creatinine 120.7 mg/dL 30.0-125.0 [facility] Microalbumin Urine 6.9 mg/L 1.3-20.0 [facility] Microalb/Creat Ratio 5.7 ug/mg 0.0-30.0 [facility] ID Date Data Source [id number] 04/07/2020 08:00:00 AM EST [facility] ([facility]) Name Value Range Interpretation Code Description Data Anel rce(s) Supporting Document(s) Triglyceride [Mass/volume] in Serum or Plasma 73 mg/dL 30-150 [facility] ([facility]) Cholesterol [Mass/volume] in Serum or Plasma 149 mg/dL 131-200 [facility] ([facility]) Cholesterol in HDL [Mass/volume] in Serum or Plasma 46 mg/dL 35-60 [facility] ([facility]) Cholesterol in LDL [Mass/volume] in Serum or Plasma by calcu lation 88 CALC 50-159 [facility] ([facility]) ID Date Data Source [id number] 04/07/2020 08:00:00 AM EST [facility] ([facility]) Name Value Range Interpretation Code Description Data Anel rce(s) Supporting Document(s) Urea nitrogen [Mass/volume] in Serum or Plasma 22 mg/dL 7-18 [facility] ([facility]) Glucose [Mass/volume] in Serum or Plasma 134 mg/dL 74-99 [facility] ([facility]) 100-125 mg/dL PRE-DIABETES/FASTING >126 mg/dL DIABETES/FASTING Sodium [Moles/volume] in Serum or Plasma 138 meq/L 136-145 [facility] ([facility]) Creatinine 0.8 mg/dL 0.6-1.3 [facility] ([facility]) Chloride [Moles/volume] in Serum or Plasma 102 meq/L 98-107 [facility] ([facility]) Carbon dioxide, total [Moles/volume] in Serum or Plasma 26 meq/L 21 -32 [facility] ([facility]) Potassium [Moles/volume] in Serum or Plasma 4.6 meq/L 3.5-5.1 [facility] ([facility]) Alkaline phosphatase isoenzyme [Units/volume] in Serum or Pl asma 75 mg/dL 46-116 [facility] ([facility]) Calcium [Mass/volume] in Serum or Plasma 9.0 mg/dL 8.5-10.1 [facility] ([facility]) Total Bilirubin 0.6 mg/dL 0.2-1.0 [facility] ([facility]) Aspartate aminotransferase [Enzymatic activity/volume] in Serum or Plasma 30 U/L 15-37 [facility] ([facility] ) Albumin [Mass/volume] in Serum or Plasma 3.9 g/dL 3.4-5.0 [facility] ([facility]) Alanine aminotransferase [Enzymatic activity/volume] in Seru m or Plasma 65 U/L 12-78 [facility] ([facility]) A/G Ratio 1.18 CALC 1.00-1.90 [facility] Proteinase 3 Ab [Units/volume] in Serum 7.2 g/dL 6.4-8.2 [facility] ([facility]) Glomerular filtration rate/1.73 sq M pre dicted among non-blacks [Volume Rate/Area] in Serum or Plasma by Creatinine-based formula (MDRD) Laboratory test result [facility] ([facility] ) Glomerular filtration rate/1.73 sq M pre dicted among blacks [Volume Rate/Area] in Serum or Plasma by Creatinine-based formula (MDRD) Laboratory test result [facility] <content>CHRONIC KIDNEY DISEASE STAGING PER NKF</content>
<content></content>
<content>STAGE I & II GFR >= 60 NORMAL TO MILDLY DECREASED</content>
<content>STAGE III GFR 30-59 MODERATELY DECREASED</content>
<content>STAGE IV GFR 15-29 SEVERELY DECREASED</content>
<content>STAGE V GFR <15 VERY LITTLE GFR LEFT</content>
<content>ESRD GFR <15 ON [employer] INSURANCE</content>
<content></content> ID Date Data Source [id number] 04/07/2020 08:00:00 AM EST [facility] Name Value Range Interpretation Code Description Data Anel rce(s) Supporting Document(s) Hemoglobin A1c/Hemoglobin.total in Blood 7.5 % [facility] ([facility] Lab Result Notes: Pre-Diabetes 5.7 - 6.4 % Diabetes = or > 6.5% Glucose mean value [Mass/volume] in Blood Estimated fr om glycated hemoglobin 169 mg/dL 60-110 [facility] ([facility] ID Date Data Source [id number] 04/07/2020 08:00:00 AM EST [facility] Name Value Range Interpretation Code Description Data Anel rce(s) Supporting Document(s) Leukocytes [#/volume] in Blood by Automated count 6.8 x10*3/UL 4.1-10 .9 [facility] ([facility]) Erythrocytes [#/volume] in Blood by Automated count 4.96 x10*6/UL 4.2 0-6.30 [facility] ([facility]) Hemoglobin [Mass/volume] in Blood 14.9 g/dL 12.0-18.0 [facility] ([facility]) Hematocrit [Volume Fraction] of Blood by Automated count 43.0 % 3 7.0-51.0 [facility] MCV 86.6 fL 80.0-97.0 [facility] MCH 30.0 pg 26.0-32.0 [facility] Erythrocyte distribution width [Ratio] by Automated count 12.2 % 11.6-13.7 [facility] ([facility]) Platelets [#/volume] in Blood by Automated count 221 x10*3/UL 140-440 [facility] ([facility]) MCHC 34.7 g/dL 31.0-38.0 [facility] ([facility]) Lymph % 17.8 % 10.0-58.5 [facility] ([facility] MPV 8.5 FL 7.8-11.0 [facility] ([facility] Neut % 77.2 % 37.0-92.0 [facility] ([facility] Mid % 5.0 % 1.7-9.3 [facility] ([facility] Lymph # 1.2 x10*3/UL 0.6-4.1 [facility] ([facility]) Mid # 0.4 x10*3/UL 0.1-0.6 [facility] ([facility]) Neut # 5.2 x10*3/UL 2.0-7.8 [facility] ([facility]) ID Date Data Source [id number] 04/07/2020 08:00:00 AM EST [facility] ([facility]) Name Value Range Interpretation Code Description Data Anel rce(s) Supporting Document(s) Hemoglobin A1c/Hemoglobin.total in Blood Laboratory test result [facility] ID Date Data Source [id number] 10/03/2019 11:08:00 AM EDT [facility]) Name Value Range Interpretation Code Description Data Anel rce(s) Supporting Document(s) Cholesterol [Mass/volume] in Serum or Plasma 139 mg/dL 131-200 [facility] ([facility]) Triglyceride [Mass/volume] in Serum or Plasma 63 mg/dL 30-150 [facility] ([facility]) Cholesterol in HDL [Mass/volume] in Serum or Plasma 52 mg/dL 35-60 [facility] ([facility]) Cholesterol in LDL [Mass/volume] in Serum or Plasma by calcu lation 74 CALC 50-159 [facility] ([facility]) ID Date Data Source [id number] 10/03/2019 11:08:00 AM EDT [facility] ([facility]) Name Value Range Interpretation Code Description Data Anel rce(s) Supporting Document(s) Glucose [Mass/volume] in Serum or Plasma 119 mg/dL 74-99 [facility] ([facility]) 100-125 mg/dL PRE-DIABETES/FASTING >126 mg/dL DIABETES/FASTING Creatinine 1.1 mg/dL 0.6-1.3 [facility] ([facility]) Urea nitrogen [Mass/volume] in Serum or Plasma 19 mg/dL 7-18 [facility] ([facility]) Potassium [Moles/volume] in Serum or Plasma 4.5 meq/L 3.5-5.1 [facility] ([facility]) Sodium [Moles/volume] in Serum or Plasma 147 meq/L 136-145 [facility] ([facility]) Chloride [Moles/volume] in Serum or Plasma 108 meq/L 98-107 [facility] ([facility]) Carbon dioxide, total [Moles/volume] in Serum or Plasma 30 meq/L 21 -32 [facility] ([facility]) Calcium [Mass/volume] in Serum or Plasma 9.5 mg/dL 8.5-10.1 [facility] ([facility]) Total Bilirubin 0.7 mg/dL 0.2-1.0 [facility] ([facility]) Alkaline phosphatase isoenzyme [Units/volume] in Serum or Pl asma 82 mg/dL 46-116 [facility] ([facility]) Aspartate aminotransferase [Enzymatic activity/volume] in Serum or Plasma 35 U/L 15-37 [facility] ([facility] ) Albumin [Mass/volume] in Serum or Plasma 4.4 g/dL 3.4-5.0 [facility] ([facility]) Alanine aminotransferase [Enzymatic activity/volume] in Seru m or Plasma 67 U/L 12-78 [facility] ([facility]) A/G Ratio 1.42 CALC 1.00-1.90 [facility]) Proteinase 3 Ab [Units/volume] in Serum 7.5 g/dL 6.4-8.2 [facility] ([facility]) Glomerular filtration rate/1.73 sq M pre dicted among non-blacks [Volume Rate/Area] in Serum or Plasma by Creatinine-based formula (MDRD) Laboratory test result [facility] ([facility] ) Glomerular filtration rate/1.73 sq M pre dicted among blacks [Volume Rate/Area] in Serum or Plasma by Creatinine-based formula (MDRD) Laboratory test result [facility] ([facility]) <content>CHRONIC KIDNEY DISEASE STAGING PER NKF</content>
<content></content>
<content>STAGE I & II GFR >= 60 NORMAL TO MILDLY DECREASED</content>
<content>STAGE III GFR 30-59 MODERATELY DECREASED</content>
<content>STAGE IV GFR 15-29 SEVERELY DECREASED</content>
<content>STAGE V GFR <15 VERY LITTLE GFR LEFT</content>
<content>ESRD GFR <15 ON [employer]URANCE</content>
<content></content> ID Date Data Source [id number] 10/03/2019 11:08:00 AM EDT [facility]) Name Value Range Interpretation Code Description Data Anel rce(s) Supporting Document(s) Hemoglobin A1c/Hemoglobin.total in Blood 7.3 g/dL 4.8-5.6 [facility] ([facility]) Lab Result Notes: Pre-Diabetes 5.7 - 6.4 % Diabetes = or > 6.5% Glucose mean value [Mass/volume] in Blood Estimated fr om glycated hemoglobin 163 mg/dL 60-110 [facility] ([facility] ) ID Date Data Source [id number] 10/03/2019 11:08:00 AM EDT [facility]) Name Value Range Interpretation Code Description Data Anel rce(s) Supporting Document(s) Leukocytes [#/volume] in Blood by Automated count 6.4 x10*3/UL 4.1-10 .9 [facility] Erythrocytes [#/volume] in Blood by Automated count 4.70 x10*6/UL 4.2 0-6.30 [facility] Hemoglobin [Mass/volume] in Blood 14.4 g/dL 12.0-18.0 [facility] ([facility]) Hematocrit [Volume Fraction] of Blood by Automated count 41.1 % 3 7.0-51.0 [facility] ([facility]) MCV 87.3 fL 80.0-97.0 [facility] ([facility]) MCH 30.6 pg 26.0-32.0 [facility] ([facility]) MCHC 35.1 g/dL 31.0-38.0 [facility] ([facility]) Platelets [#/volume] in Blood by Automated count 262 x10*3/UL 140-440 [facility] ([facility] Erythrocyte distribution width [Ratio] by Automated count 12.4 % 11.6-13.7 [facility] ([facility]) MPV 8.0 FL 7.8-11.0 [facility] ([facility]) Lymph % 24.0 % 10.0-58.5 [facility] ([facility]) Neut % 69.0 % 37.0-92.0 [facility] ([facility]) Mid % 7.0 % 1.7-9.3 [facility] ([facility]) Lymph # 1.5 x10*3/UL 0.6-4.1 [facility] ([facility]) Mid # 0.5 x10*3/UL 0.1-0.6 [facility] ([facility]) Neut # 4.4 x10*3/UL 2.0-7.8 [facility] ([facility]) ID Date Data Source [id number] 10/03/2019 11:08:00 AM EDT [facility] ([facility]) Name Value Range Interpretation Code Description Data Anel rce(s) Supporting Document(s) Hemoglobin A1c/Hemoglobin.total in Blood Laboratory test [facility]) ID Date Data Source [id number] 09/26/2019 12:00:00 AM EDT [facility] Mark Spangler MD Patient Name: HIRO [id number] [facility] Date of : 1970Suite Date of Exam: 09/26/2019POWER Wallace [id number]#: Fax: [phone] EXAM: MRI SHOULDER RIGHT W/O&W/CONTRAST ARTHROGRAMCLINICAL INFORMATION: Pain and decreased [id number].There are no prior right shoulder MRI's for comparison.Pre and post contrast 3T MRI of the right shoulder with shoulder MRIarthrography was performed utilizing various sequences. The glenohumeralinjection was performed by NAIF Ríos.The pre- injection portion of the examination shows moderate hypertrophicdegenerative changes involving the acromioclavicular joint. The acromionprocess is Type II/III with a tiny smoothly marginated, well corticatedossific density seen just superficial to the distal tip of the acromionprocess. There is significant T2 hypersignal seen throughout thesupraspinatus tendon, particularly along the anterior leading edge whichappears full thickness. There is no evidence of supraspinatus muscle bellyatrophy or retraction. There is no awilda glenohumeral joint effusion,however, there is fluid in the subcoracoid recess. The coracohumeral andcoracoacromial ligaments are not frankly abnormally thickened. The bicepstendon resides within the bicipital groove. The signal within thesubscapularis, infraspinatus, and teres minor tendons appears to be withinnormal limits throughout.The post injection portion of the examination shows a small amount of theinjected fluid has migrated superior to the supraspinatus tendon or hascertainly migrated intratendinous in location. There is some evidence ofbiceps labral complex fraying. There is a small cleft/sublabral foramenseen in the anterior superior labrum without definite evidence of adiscrete tear. The glenohumeral ligaments are intact.IMPRESSION:1. There is supraspinatus tendinitis/tendinosis. I suspect a partial fullthickness tear along the anterior leading edge.2. There is evidence of biceps labral complex fraying with other labralchanges as described above.3. AC joint changes as described above with a Type III acromion processand evidence of old trauma to the distal acromion process.4. Other findings as described above.Accredited by the [employer] in [place].TRAVIS Richardson/Altagracia you for referring HIRO SHANKAR to our office. Electronically Signed - FERMIN CASEY DO 09/26/19 16:59 Name Value Range Interpretation Code Description Data Anel rce(s) Supporting Document(s) ID Date Data Source [id number] 09/26/2019 12:00:00 AM EDT [facility] Imaging Mark Spangler MD Patient Name: HIRO [id number] [facility] Date of : 1970Suite Date of Exam: 09/26/2019POWER Wallace [id number]#: Fax: [phone] EXAM: INJECTION PROCEDURE FOR SHOULDER ARTHROGRAMCLINICAL INFORMATION: Pain right shoulder. Rule out SLAP tear.The procedure was performed by Afshan Jaimes [facility], under the directsupervision of Dr. Casey.The benefits and risks including but not limited to pain, infection,bleeding and anaphylaxis were explained to the patient as well as thepossibility of an unsuccessful procedure, and an informed consent wasobtained. Directly prior to the start of the procedure, a formal time-outwas completed.The right glenohumeral joint space was localized using fluoroscopicguidance. The skin was prepped and draped in a sterile fashion.Approximately 5 cc of 1% Lidocaine 10 mg/ml was used as a local anesthetic. Using fluoroscopic guidance, a #22 gauge spinal needle was inserted andadvanced into the right glenohumeral joint space. Approximately 1 cc ofOmnipaque 300 mg/ml was injected to verify placement. 12 cc of a solutioncontaining 20 cc of sterile saline and 0.15 cc of ProHance was injectedinto the joint space. The needle was removed and the patient was taken toMRI for post procedural imaging.The patient tolerated the procedure well and there were no immediatecomplications.Fluoroscopic images are performed with last image hold technology. Theseimages require no additional radiation to acquire.Fluoroscopy time was 9 seconds at 3 pulses/second. This is equal to 2.25seconds continuous fluoroscopy time which is a 75% reduction in radiation.Dictated by Afshan Jaimes [facility], with Dr. Casey.TRAVIS Richardson/Altagracia you for referring HIRO SHANKAR to our office. Electronically Signed - FERMIN CASEY DO 09/26/19 16:59 Name Value Range Interpretation Code Description Data Anel rce(s) Supporting Document(s) ID Date Data Source [id number] 09/26/2019 12:00:00 AM EDT [facility] Imaging Mark Spangler MD Patient Name: HIRO [id number] [facility] Date of : 1970Suite Date of Exam: 09/26/2019POWER Wallace [id number]#: Fax: [phone] EXAM: INJECTION PROCEDURE FOR SHOULDER ARTHROGRAMCLINICAL INFORMATION: Pain right shoulder. Rule out SLAP tear.The procedure was performed by Afshan Jaimes [facility], under the directsupervision of Dr. Casey.The benefits and risks including but not limited to pain, infection,bleeding and anaphylaxis were explained to the patient as well as thepossibility of an unsuccessful procedure, and an informed consent wasobtained. Directly prior to the start of the procedure, a formal time-outwas completed.The right glenohumeral joint space was localized using fluoroscopicguidance. The skin was prepped and draped in a sterile fashion.Approximately 5 cc of 1% Lidocaine 10 mg/ml was used as a local anesthetic. Using fluoroscopic guidance, a #22 gauge spinal needle was inserted andadvanced into the right glenohumeral joint space. Approximately 1 cc ofOmnipaque 300 mg/ml was injected to verify placement. 12 cc of a solutioncontaining 20 cc of sterile saline and 0.15 cc of ProHance was injectedinto the joint space. The needle was removed and the patient was taken toMRI for post procedural imaging.The patient tolerated the procedure well and there were no immediatecomplications.Fluoroscopic images are performed with last image hold technology. Theseimages require no additional radiation to acquire.Fluoroscopy time was 9 seconds at 3 pulses/second. This is equal to 2.25seconds continuous fluoroscopy time which is a 75% reduction in radiation.Dictated by Afshan Jaimes [facility], with Dr. Casey.TRAVIS Richardson/Altagracia you for referring HIRO SHANKAR to our office. Electronically Signed - FERMIN CASEY DO 09/26/19 16:59 Name Value Range Interpretation Code Description Data Anel rce(s) Supporting Document(s) ID Date Data Source [id number] 06/05/2019 01:40:00 PM EST [facility] ([facility]) Name Value Range Interpretation Code Description Data Anel rce(s) Supporting Document(s) Glucose, Fasting 190 mg/dL 70-100 [facility] ([facility]) Blood Urea Nitrogen 15 mg/dL 7-18 [facility] ([facility]) Creatinine For GFR 1.01 mg/dL 0.70-1.30 [facility] ([facility]) Glomerular Filtration Rate Laboratory test result [facility] ([facility]) <content>Units are mL/min/1.73 m2</content>
<content></content>
<content>Chronic Kidney Disease Staging per NKF:</content>
<content></content>
<content>Stage I & II GFR >=60 Normal to Mildly Decreased</content>
<content>Stage III GFR 30- 59 Moderately Decreased</content>
<content>Stage IV GFR 15-29 Severely Decreased</content>
<content>Stage V GFR <15 Very Little GFR Left</content>
<content>ESRD GFR <15 on [employer]</content>
<content></content> Sodium Level 139 meq/L 136-145 [facility] ([facility]) Potassium Serum 4.3 meq/L 3.5-5.1 [facility] ([facility]) Chloride Level 104 meq/L 98-107 [facility] ([facility]) Carbon Dioxide Level 26 meq/L 21-32 [facility] ( [facility] Anion Gap 9 meq/L 8-16 [facility] ([facility]) Calcium Level 8.8 mg/dL 8.5-10.1 [facility] ([facility]) ID Date Data Source [id number] 06/05/2019 01:40:00 PM EST [facility] ([facility]) Name Value Range Interpretation Code Description Data Anel rce(s) Supporting Document(s) Glucose, Fasting 190 mg/dL 70-100 [facility] ([facility]) Blood Urea Nitrogen 15 mg/dL 7-18 [facility] ([facility]) Creatinine For GFR 1.01 mg/dL 0.70-1.30 [facility] ([facility]) Sodium Level 139 meq/L 136-145 [facility] ([facility]) Glomerular Filtration Rate Laboratory test result [facility] ([facility]) <content>Units are mL/min/1.73 m2</content>
<content></content>
<content>Chronic Kidney Disease Staging per NKF:</content>
<content></content>
<content>Stage I & II GFR >=60 Normal to Mildly Decreased</content>
<content>Stage III GFR 30- 59 Moderately Decreased</content>
<content>Stage IV GFR 15-29 Severely Decreased</content>
<content>Stage V GFR <15 Very Little GFR Left</content>
<content>ESRD GFR <15 on [employer]</content>
<content></content> Potassium Serum 4.3 meq/L 3.5-5.1 [facility] ([facility]) Carbon Dioxide Level 26 meq/L 21-32 [facility] ([facility]) Chloride Level 104 meq/L 98-107 [facility] ([facility]) Anion Gap 9 meq/L 8-16 [facility] ([facility] Calcium Level 8.8 mg/dL 8.5-10.1 [facility] ([facility]) Procedure Social History Code Duration Value Status Description Data Source(s ) Smoking 05/24/2020 12:00:00 AM EST Patient is a former smoker completed Patient is a former smoker [facility] ([facility]) Smoking 11/11/2019 12:00:00 AM EDT Patient has never smoked co mpleted Patient has never smoked [facility] ([facility], ) Vital Signs ID Date Data Source UNK Name Value Range Interpretation Code Description Data Source(s) Body mass index (BMI) [Ratio] 30.8 kg/m2 30.8 k g/m2 [facility] ([facility]) Body weight 188.00 [lb_av] 188.00 [lb_av] [facility] T ([facility]) Body height 65.50 [in_i] 65.50 [in_i] [facility] 5'5.50" Heart rate 76 /min 76 /min [facility] ([facility]) Diastolic blood pressure 72 mm[Hg] 72 mm[Hg] [facility] ([facility]) Systolic blood pressure 110 mm[Hg] 110 mm[Hg] [facility] Body temperature 96.5 [degF] 96.5 [degF] [facility] ([facility]) Body mass index (BMI) [Ratio] 30.6 kg/m2 30.6 k g/m2 [facility] ([facility]) Body weight 187.00 [lb_av] 187.00 [lb_av] [facility] T ([facility]) Body height 65.50 [in_i] 65.50 [in_i] [facility] 5'5.50" Heart rate 80 /min 80 /min [facility] ([facility]) Diastolic blood pressure 78 mm[Hg] 78 mm[Hg] [facility] ([facility]) Systolic blood pressure 110 mm[Hg] 110 mm[Hg] [facility] Body temperature 97.3 [degF] 97.3 [degF] [facility] ([facility]) Body weight 87.545 kg 87.545 kg [facility] ([facility]) Dixon body weight 142 [lb_av] 142 [lb_av] [facility] ([facility]) Body mass index (BMI) [Ratio] 31.1 kg/m2 31.1 k g/m2 [facility] ([facility]) Body weight 193.00 [lb_av] 193.00 [lb_av] [facility] ([facility]) Body height 66 [in_i] 66 [in_i] [facility] ([facility]) 5'6" Body temperature 97.9 [degF] 97.9 [degF] [facility] ([facility]) Oxygen saturation in Arterial blood by Pulse oximetry 98 % 98 % [facility] ([facility]) Heart rate 91 /min 91 /min [facility] ([facility]) Diastolic blood pressure 82 mm[Hg] 82 mm[Hg] [facility] ([facility]) Systolic blood pressure 122 mm[Hg] 122 mm[Hg] [facility] ([facility]) Body mass index (BMI) [Ratio] 30.0 kg/m2 30.0 k g/m2 [facility] Body weight 183.00 [lb_av] 183.00 [lb_av] [facility] ([facility]) Body height 65.50 [in_i] 65.50 [in_i] [facility] 5'5.50" Heart rate 68 /min 68 /min [facility] ([facility]) Diastolic blood pressure 62 mm[Hg] 62 mm[Hg] [facility] ([facility]) Systolic blood pressure 90 mm[Hg] 90 mm[Hg] [facility] ([facility]) Body weight 86.184 kg 86.184 kg [facility] ([facility]) Body mass index (BMI) [Ratio] 30.7 kg/m2 30.7 k g/m2 [facility] ([facility]) Body weight 190.00 [lb_av] 190.00 [lb_av] [facility] ([facility]) Body height 66 [in_i] 66 [in_i] [facility] ([facility]) 5'6" Body temperature 96.7 [degF] 96.7 [degF] [facility] ([facility]) Body weight 88.906 kg 88.906 kg [facility] ([facility]) Body mass index (BMI) [Ratio] 31.6 kg/m2 31.6 k g/m2 [facility] ([facility]) Body weight 196.00 [lb_av] 196.00 [lb_av] [facility] ([facility]) Body height 66 [in_i] 66 [in_i] [facility] ([facility]) 5'6" Oxygen saturation in Arterial blood by Pulse oximetry 96 % 96 % [facility] ([facility], ) Heart rate 85 /min 85 /min [facility] ([facility], ) Diastolic blood pressure 86 mm[Hg] 86 mm[Hg] [facility] ([facility], ) Systolic blood pressure 130 mm[Hg] 130 mm[Hg] M [facility] ([facility], ) Body weight 90.720 kg 90.720 kg [facility] ([facility]) Body mass index (BMI) [Ratio] 32.3 kg/m2 32.3 k g/m2 [facility] ([facility]) Heart rate 92 /min 92 /min [facility] Diastolic blood pressure 78 mm[Hg] 78 mm[Hg] [facility] Systolic blood pressure 125 mm[Hg] 125 mm[Hg] [facility] Body weight 200.00 [lb_av] 200.00 [lb_av] [facility] T ([facility]) Body height 66 [in_i] 66 [in_i] [facility] ([facility]) 5'6" Body mass index (BMI) [Ratio] 31.5 kg/m2 31.5 k g/m2 [facility] ([facility]) Body weight 198.00 [lb_av] 198.00 [lb_av] [facility] ([facility] Body height 66.5 [in_i] 66.5 [in_i] [facility] ([facility] 5'6.50" Body temperature 97.6 [degF] 97.6 [degF] [facility] Patient Treatment Plan of Care Planned Activity Planned Date Details Description Data Source (s) travoprost 0.04 MG/ML Ophthalmic Solution [Travatan] 020 12:00:00 AM EDT [facility] (Angel Ledbetter MD [facility]) bimatoprost 0.1 MG/ML Ophthalmic Solution [Lumigan] 10/02/19 20 12:00:00 AM EDT [facility] (Angel Ledbetter MD [facility]) Timolol 0.005 MG/MG Ophthalmic Gel 02/04/2019 12:00:00 AM EDT [facility] (Angel Ledbetter MD [facility]) bimatoprost 0.1 MG/ML Ophthalmic Solution [Lumigan] 01/28/20 12:00:00 AM WHIT SHARMA (Angel Ledbetter MD [facility])
[2020-06-16] MEDS ORDERED: fentaNYL 100 MCG/2 ML INJECTION (J3010) IV PRN ×2 (07:01→10:15)
[2020-06-16] MEDS ORDERED: MIDAZOLAM INJ 2MG/2ML VIAL (J2250 PER 1MG) IV PRN (07:01)
[2020-06-16] MEDS ORDERED: ROPIvacaine 0.5% 30ML INJECTION (J2795 PER 1MG) As Ordered ONE (07:12)
[2020-06-16] MEDS ORDERED: dexameTHASONE 10MG/1ML VIAL PRES.FREE (J1100 PER 1MG) As Ordered ONE (07:12)
[2020-06-16] MEDS ORDERED: EPINEPHrine 1MG/ML INJ 30ML MD-VIAL As Ordered ONE (07:13)
[2020-06-16] MEDS ORDERED: fentaNYL 100 MCG/2 ML INJECTION (J3010) As Ordered ONE (07:13)
[2020-06-16] MEDS ORDERED: MIDAZOLAM INJ 2MG/2ML VIAL (J2250 PER 1MG) As Ordered ONE ×2 (07:13→08:06)
[2020-06-16] MEDS ORDERED: dexameTHASONE 10MG/1ML VIAL PRES.FREE (J1100 PER 1MG) XX ONE (07:15)
[2020-06-16] MEDS ORDERED: LIDOCAINE 1% MDV 20ML VIAL XX ONE (07:15)
[2020-06-16] MEDS ORDERED: ROPIvacaine 0.5% 30ML INJECTION (J2795 PER 1MG) XX ONE (07:15)
[2020-06-16] MEDS ORDERED: TRANEXAMIC ACID 100 MG/ML 10ML VIAL As Ordered ONE (07:54)
[2020-06-16] MEDS ORDERED: ONDANSETRON 4MG/2ML VIAL As Ordered ONE (08:06)
[2020-06-16] MEDS ORDERED: ePHEDrine SULFATE 25 MG/5 ML(5MG/ML) SYRINGE As Ordered ONE ×2 (08:06→08:53)
[2020-06-16] MEDS ORDERED: fentaNYL 250 MCG/5 ML INJECTION (J3010) As Ordered ONE (08:06)
[2020-06-16] MEDS ORDERED: PHENYLephrine 500MCG 5ML (100MCG/ML) SYRINGE As Ordered ONE ×2 (08:06→08:53)
[2020-06-16] MEDS ORDERED: propofoL 200 MG/20 ML VIAL As Ordered ONE (08:06)
[2020-06-16] MEDS ORDERED: LIDOCAINE 2% 100MG/5ML SDV (FOR ANES.) As Ordered ONE (08:06)
[2020-06-16] MEDS ORDERED: ROCURONIUM BROMIDE 50 MG/5 ML VIAL As Ordered ONE (08:06)
[2020-06-16] MEDS ORDERED: dexameTHASONE 4 MG/ML 1ML VIAL (J1100 PER 1MG) As Ordered ONE (08:06)
[2020-06-16] MEDS ORDERED: KETOROLAC 60MG 2ML VIAL As Ordered ONE (08:06)
[2020-06-16] MEDS ORDERED: SUGAMMADEX SODIUM 500 MG/5 ML VIAL (BRIDION) As Ordered ONE (08:07)
[2020-06-16] MEDS ORDERED: LACRILUBE (AKWA TEARS) OPHTH OINT 3.5 GM As Ordered ONE (08:07)
[2020-06-16] MEDS ORDERED: ACETAMINOPHEN 1000MG 100ML IV BTL (OFIRMEV) (J0131 PER 10MG) As Ordered ONE (08:09)
[2020-06-16] MEDS ORDERED: HYDROMORPHONE HCL 0.5 MG/ 0.5 ML SYRINGE (J1170 PER 1) IV PRN (10:15)
[2020-06-16] MEDS ORDERED: LR 1,000 ML IV SCH ×2 (10:15→10:45)
[2020-06-16] MEDS ORDERED: OXYCODONE/APAP 5MG/325MG(BULK FOR ED) 1 TABLET PO PRN (10:15)
[2020-06-16] MEDS ORDERED: oxyCODONE 5MG TAB PO PRN (10:15)
[2020-06-16] MEDS ORDERED: ONDANSETRON 4MG/2ML VIAL IV PRN ×2 (10:15)
[2020-06-16] MEDS ORDERED: ACETAMINOPHEN TAB 650MG DOSE (2X325MG) PO PRN (10:15)
[2020-06-16] MEDS ORDERED: MORPHINE 2 MG/ML 1ML VIAL (J2270) IV PRN (10:15)
[2020-06-16 10:58] VITALS: BP 129/78
--- NOTE | 2020-06-16 17:17 | RO ---
OPERATIVE NOTE DATE OF OPERATION: 06/16/2020 PREOPERATIVE DIAGNOSIS: Right shoulder partial articular-sided supraspinatus tendon tear. POSTOPERATIVE DIAGNOSIS: Right shoulder partial articular-sided supraspinatus tendon tear and type 2 SLAP tear. PLANNED PROCEDURES: Right shoulder arthroscopy, subacromial decompression, and repair of supraspinatus tendon. PROCEDURES PERFORMED: Right shoulder arthroscopy, subacromial decompression, repair of supraspinatus tendon, subpectoral biceps tenodesis. SURGEON: Mark Spangler MD IN HOME AIDE: ANESTHESIOLOGIST: Bipin Rivas MD. ANESTHESIA: General anesthetic plus block. OPERATIVE PREAMABLE: This 50-year-old man presented with signs and symptoms consistent with impingement syndrome. MRI demonstrated partial under surface tear of the supraspinatus tendon along the leading edge, as well as a type 2 acromion. There was also some evidence of biceps labral complex splaying. He wished to go ahead with surgery. I reiterated the pros, cons, risks, and benefits of this. Marked the right upper extremity. The patient received a block, and we proceeded to surgery. OPERATIVE REPORT: The patient was brought to the operating theater and administered general anesthetic. He was placed supine in the beach chair position with a SPIDER arm owen to the patient's right side. The limb was prepped and draped in the usual sterile fashion allowing over three minutes for prep solution drying time prior to draping. Chlorhexidine-based prep solution was employed. The patient was sat up at a 50 degree angle. Preoperative time-out was performed to confirm the site, the patient, and the surgery. General anesthesia was induced prior to draping. I began by making a standard posterior arthroscopy portal and inserting the arthroscope into the intraarticular portion of the shoulder. I made an anterior working portal through inside-out spinal needle localization through the rotator interval just posterior to the biceps tendon. Cartilage in the glenoid was slightly frayed. Grade 1 softening on the humerus side looked normal. There was an obvious type 2 SLAP tear, instability at the biceps root, as well as longitudinal fraying of the biceps. I tried to gently debride this, but it was unstable with longitudinal tearing and as such, I decided to do a subpectoral biceps tenodesis. I used electrocautery to release the intraarticular portion of the biceps root and then used a shaving instrument to clean up the superior aspect of the labrum to smooth stable margins. The undersurface of the anterior leading margin of the supraspinatus tendon did have undersurface partial thickness tearing. I then inserted the arthroscope in the subacromial space. I performed a thorough bursectomy. I performed a subacromial decompression with a 5 mm cleo down to the SLAP margins for the subacromial decompression. I examined the rest of the supraspinatus tendon, as well as the rotator cuff tendons including the subscapularis, and no obvious other tears were noted. I then put the arthroscope back through the intraarticular portion of the shoulder. I used the Arthrex percutaneous technique and instruments in order to pass percutaneous anchors for the PASTA repair transtendinous. I passed the first suture along the leading edge of the rotator cable. I used a punch and then inserted two Arthrex PEEK SutureTak knotless 3 mm anchors at the anterior leading edge of the tear through the tendon in a (cut out). Total width for the tear was approximately 6 mm. Anchors achieved good purchase of bone. I then (cut out) from each extension to the suture end and then passed the sutures in a mamta-cross fashion creating a horizontal mattress construct. I then took the two free suture limbs and passed these into an Arthrex 4.75 mm BioComposite SwiveLock that I inserted laterally to form a triangular partial articular-sided transtendinous repair. I took arthroscopic pictures of this. I then turned my attention to performing the subpectoral biceps tenodesis. I made a small longitudinal incision just anterior to the axillary fold. I carried the dissection down through the skin and subcutaneous tissue maintaining meticulous hemostasis. I incised the fascia longitudinally. Upward traction at the inferior margin of the pectoralis major insertion. I identified the long head of the biceps. I delivered this through the incision. I used the Arthrex button slide to (cut out) with a loop configuration for a running whipstitch of the tendon for five throws and then, brought the suture out in a locking fashion to create two suture tails cut at the splice. I then used FiberLink suture for future stitch passage back through the tendon. I passed the sutures in opposite fashion through the button. I then used the spade tip drill in a bicortical fashion in the biceps groove just proximal to the pectoralis major insertion. I passed bicortically and I then used the 7-mm acorn reamer to ream a unicortical bone tunnel and then thoroughly irrigated any bone dust. I then passed the button bicortically to the far cortex and then delivered the tendon into the bony tunnel. I then took one suture limb through a FiberLink stay suture and delivered this through the tendon. I then used alternating half-hitches and cut the suture short to tie it on top of the biceps tendon as well to lock in place. This was then thoroughly irrigated. Subcutaneous tissue closed with interrupted 2-0 Vicryl sutures and 3-0 Monocryl. Steri-Strips were applied. Adaptic, 4 x 8 gauze, and ABD dressing was then applied to the shoulder and a sling placed on the upper extremity. [employer] was awoken from general anesthetic, transferred off the operating room table, and taken to the postanesthetic care unit in stable condition. COUNTS: All sponge counts, needle counts, and instrument counts were correct. No complications. ESTIMATED BLOOD LOSS: 50 mL. PLAN: For the patient to start pendulum exercises, as well as hand, wrist, and elbow exercises; but no lifting or active range of motion beyond shoulder height, and start physical therapy within the first two to four weeks. Follow-up in the office in two weeks' time. The patient will be discharged according to day surgery criteria and a prescription will be sent in to the pharmacy of choice electronically. I communicated with the patient and the patient's significant other after surgery as well so they understand the plan.
== END 2020-06-16 11:41 | disposition home or self-care (01) ==
LOC: M SDC 06:18
PROVIDERS: ATTEND Orthopaedic Surgery Sports Medicine
DX: S43.431A Superior glenoid labrum lesion of right shoulder, initial encounter (principal); S46.011A Strain of muscle(s) and tendon(s) of the rotator cuff of right shoulder, initial encounter; E11.3291 Type 2 diabetes mellitus with mild nonproliferative diabetic retinopathy without macular edema, right eye; E11.36 Type 2 diabetes mellitus with diabetic cataract; E78.00 Pure hypercholesterolemia, unspecified; F17.220 Nicotine dependence, chewing tobacco, uncomplicated; G47.33 Obstructive sleep apnea (adult) (pediatric); R06.83 Snoring; X58.XXXA Exposure to other specified factors, initial encounter; Y93.9 Activity, unspecified; Y92.9 Unspecified place or not applicable; Y99.9 Unspecified external cause status; Z79.899 Other long term (current) drug therapy; Z88.5 Allergy status to narcotic agent
CPT/HCPCS: 29807; 29826; 29828; 64415; 88304; C1713; J0131; J0690; J1100; J1885; J2250; J2370; J2405; J2795; J3010

== ENCOUNTER 2021-07-20 10:41 | Emergency (ER) | payer OTHER ==
[~2021-07-20] VITALS: Ht 167.6 cm; Wt 84.5 kg
[~2021-07-20 10:41] MED LIST changes: -LIDOCAINE 1% MDV 20ML VIAL SQ PRN; -LR 1,000 ML IV ONE; -ceFAZolin SOD 2 GM in IV 1 EA IV ONE
[2021-07-20] MEDS ORDERED: JARD1TAB (10:51)
[2021-07-20] MEDS ORDERED: METOCLOPRAMIDE INJ 10MG/2ML VIAL (J2765 PER 1) IV ONE (11:20)
[2021-07-20] MEDS ORDERED: diphenhydrAMINE 50MG/ML VIAL (J1200) IM STA (11:20)
[2021-07-20] MEDS ORDERED: diphenhydrAMINE 50MG/ML VIAL (J1200) IV STA (11:46)
[2021-07-20 11:56] LABS: BASO % 0.1 % (0.0-1.0); EOS # 0.1 10^3/uL (0.0-0.5); EOS % 1.3 % (0.0-3.0); HEMATOCRIT 44.7 % (42.0-52.0); HEMOGLOBIN 14.9 g/dl (13.5-17.5); LYMPH # 0.4 10^3/uL (1.5-5.0); LYMPH % 3.9 % (24.0-44.0); MEAN CORPUSCULAR HEMOGLOBIN 29.9 pg (27.0-33.0); MEAN CORPUSCULAR HGB CONC 33.3 g/dl (32.0-36.5); MEAN CORPUSCULAR VOLUME 89.8 fl (80.0-96.0); MONO # 0.6 10^3/uL (0.0-0.8); MONO % 5.7 % (2.0-8.0); NEUTROPHILS % 88.7 % (36.0-66.0); PLATELET COUNT, AUTOMATED 249 10^3/uL (150-450); RED BLOOD COUNT 4.98 10^6/uL (4.30-6.10); WHITE BLOOD COUNT 10.1 10^3/uL (4.0-10.0)
[2021-07-20 12:09] LABS: INR 0.96; PARTIAL THROMBOPLASTIN TIME 30.4 SECONDS (25.9-37.0); PROTHROMBIN TIME 13.2 SECONDS (12.7-14.5)
[2021-07-20 12:11] LABS: CK-MB VALUE MASS 1.1 NG/ML (<3.6); MB/CK RELATIVE INDEX 0.48 (< OR =4)
[2021-07-20] MEDS ORDERED: KETOROLAC 30 MG/ML 1ML VIAL IV ONE (16:00)
[2021-07-20 16:42] VITALS: BP 114/71
[2021-07-22 16:11] LABS: Lyme Disease IgG/IgM Antibodie <0.91 ISR (0.00-0.90); Lyme Disease IgM Ab Quantitati <0.80 index (0.00-0.79)
== END 2021-07-20 16:54 | disposition home or self-care (01) ==
LOC: M ED 10:41
DX: G43.909 Migraine, unspecified, not intractable, without status migrainosus (principal); R00.0 Tachycardia, unspecified; E11.9 Type 2 diabetes mellitus without complications; E78.5 Hyperlipidemia, unspecified; Z79.899 Other long term (current) drug therapy
CPT/HCPCS: 70450; 70544; 70551; 71045; 80047; 82550; 82553; 84484; 85025; 85610; 85730; 86617; 93005; 93041; 94760; 96372; 96374; 96375; 99285; J1200; J1885; J2765

== ENCOUNTER 2021-10-14 15:01 | Emergency (ER) | payer OTHER ==
[~2021-10-14] VITALS: Ht 167.6 cm; Wt 81.3 kg
[~2021-10-14 15:01] MED LIST changes: +JARD1TAB
[2021-10-14] MEDS ORDERED: CAPS0.022 TOP (17:38)
[2021-10-14 18:00] VITALS: BP 129/75
== END 2021-10-14 18:01 | disposition home or self-care (01) ==
LOC: M ED 15:01
DX: M79.89 Other specified soft tissue disorders (principal); E11.9 Type 2 diabetes mellitus without complications; E78.5 Hyperlipidemia, unspecified; Z79.84 Long term (current) use of oral hypoglycemic drugs; Z79.899 Other long term (current) drug therapy; Z88.5 Allergy status to narcotic agent

== ENCOUNTER → 2023-01-24 | Outpatient (CLI) | payer OTHER ==
[~2023-01-24] MED LIST changes: +CAPS0.022 TOP
== END ==
LOC: M RAD 06:13
PROVIDERS: ATTEND Internal Medicine
DX: K76.0 Fatty (change of) liver, not elsewhere classified (principal)